=== PATIENT | male | born 1980 | race Caucasian/White ===

== ENCOUNTER 2016-06-18 01:55 | Inpatient (IN) | payer MEDICAID ==
--- NOTE | 2016-06-18 02:15 | EDPHY ---
H & P Stated Complaint: back injury 06/07/16 after seizures HPI/ROS: HPI CHIEF COMPLAINT: Back pain, from seizure 9 days ago HISTORY OF PRESENT ILLNESS: This patient is a very pleasant 36-year-old male significant past medical history for hypertension who presents to the emergency room with midline thoracic or lumbar back pain that radiates out paravertebral both sides describes a sharp stabbing pain currently 8/10 when he is at rest however when he goes to move gets 10/10. He denies the pain going down his legs , denies saddle anesthesia, denies numbness or tingling, denies leg weakness. He tells me the pain stays in the mid thoracic or lumbar region. It is worse with movement. He tells me that this been going on for approximately 9 days after he had a seizure patient tells me that on June 07 had a brief episode of seizure-like activity witnessed by his girlfriend lasting less than a minute. No seizure history. She does tell me that he was shaking all over and bit his lip. He tells me ever since then he has debilitating back pain it is much worse in the morning. He is not seek medical attention for this. Past Medical History: Hypertension Past Surgical History: No significant surgical history Social History: Lives locally, denies drugs, alcohol, tobacco products Family History: Noncontributory ROS REVIEW OF SYSTEMS: A comprehensive 10 point review of systems is otherwise negative aside from elements mentioned in the history of present illness. Exam Constitutional triage nursing summary reviewed, vital signs reviewed, awake/ alert. Eyes normal conjunctivae and sclera, EOMI, PERRLA. HENT normal inspection, atraumatic, moist mucus membranes, no epistaxis, neck supple/ no meningismus, no raccoon eyes. Respiratory clear to auscultation bilaterally, normal breath sounds, no respiratory distress, no wheezing. Cardiovascular rate normal, regular rhythm, no murmur, no edema, distal pulses normal. Gastrointestinal soft, non-tender, no rebound, no guarding, normal bowel sounds, no distension, no pulsatile mass. Genitourinary no CVA tenderness. Musculoskeletal back exam: Patient does have midline thoracolumbar tenderness no step-offs or crepitus, he also has paravertebral tenderness,full range of motion, no calf swelling, no tenderness of extremities, no meningismus , good pulses, neurovascularly intact. Skin pink, warm, & dry, no rash, skin atraumatic. Neurologic awake, alert and oriented x 3, AAOx3, moves all 4 extremities equally, motor intact, sensory intact, CN II-XII intact, normal cerebellar, normal vision, normal speech. Psychiatric normal mood/affect. Heme/Lymph/Immune no lymphadenopathy. Differential Diagnosis: Includes but is not limited to in a particular order musculoskeletal back pain, disc herniation, annular tear, compression fracture, new onset seizures, electrolyte abnormality Medical Decision Making: Patient will have an IV established receive IV fluids and pain medicine 100 mcg IV fentanyl, 2.5 mg IV Valium will check basic blood work including a CK, he will have a CT scan of his head due to new onset of seizures, and x-rays of her thoracolumbar back to rule out significant bony abnormality. Re-evaluation: CT scan of the head without IV contrast. The results of the study are negative for acute intracranial abnormality The study was read by Dr. Fang I viewed the images myself on the PACS system. ED x-ray thoracic spine: negative for acute compression fracture or significant malalignment. Image interpreted by myself ED x-ray lumbar spine: Negative for acute compression fracture or significant malalignment. Image interpreted by myself 0505: re-evaluation patient is still having midline thoracic lumbar back pain. Megan medicated with IV Valium, IV Toradol, IV Dilaudid. His CT scan results show multiple compression fractures specifically there is a moderate acute compression fracture T9 mild compression fracture T10 moderate at T5 age- indeterminate mild at T12 age indeterminate mild L1 age indeterminate. This CT was reported to me by Dr. Fang. 0505: I did speak with Dr. Ba with Neurosurgery on-call she does recommend this patient being placed in a [place] brace. Patient will be admitted to the hospitalist service for pain control and MRI of his thoracic and lumbar spine to evaluate for acuity of these compression fractures. Again at this time is neurological exam is unremarkable. Neurosurgery has been consulted. Hospital service Dr. Ly has been consult accepts admission. Plan is for pain control, brace placement, multiple compression fractures Neurosurgery to see. Again at this time is neurological exam is unremarkable he has no leg weakness no arm weakness, no sensation differences no numbness or tingling. No radiation of pain. He agrees with this plan. Source: Patient - Medical/Surgical History Hx Asthma: No Hx Chronic Respiratory Disease: No Hx Diabetes: No Hx Cardiac Disease: No Hx Renal Disease: No Hx Cirrhosis: No Hx Alcoholism: No Hx HIV/AIDS: No Hx Splenectomy or Spleen Trauma: No Other PMH: INSONMIA, HTN,ADHD - Social History Smoking Status: Former smoker Constitutional: Initial Vital Signs Temperature (C) 36.7 C 06/18/16 02:01 Heart Rate 140 H 06/18/16 02:01 Respiratory Rate 20 06/18/16 02:01 Blood Pressure 101/69 06/18/16 02:01 O2 Sat (%) 98 06/18/16 02:01 O2 Delivery Mode Room Air Allergies/Adverse Reactions: No Known Allergies Allergy (Unverified 06/18/16 01:59) Home Medications: Medication Instructions Recorded amLODIPine BESYLATE [Norvasc 5 mg 5 mg PO DAILY #60 tab 04/12/15 (*)] Acetaminophen [Tylenol ES 500 mg 1,000 mg PO TID PRN 06/18/16 (*)] Dextroamphetamine/Amphetamine 7.5 - 15 mg PO BID PRN 06/18/16 [Adderall 30 mg Tablet] HYDROcodone/APAP 10/325 [[place] 1 - 2 tab PO Q6HRS PRN #30 tab 06/18/16 10/325 (*)] Multivitamins [Multivitamin (*)] 1 tab PO DAILY 06/18/16 Zolpidem Tartrate [Ambien 10 mg] 10 mg PO HS PRN 06/18/16 Medical Decision Making - Data Points Laboratory Results: Laboratory Results 06/18/16 02:45 06/18/16 02:45 Medications Given: Discontinued Medications Acetaminophen/Hydrocodone Bitart ([place] 10/325) 1 - 2 tab PO Q6HRS PRN PRN Reason: Pain, Moderate Able to Take PO Stop: 06/28/16 08:27 Last Admin: 06/18/16 18:19 Dose: 1 tab Diazepam (Valium Injection) 2.5 mg IVP EDNOW ONE Stop: 06/18/16 02:23 Last Admin: 06/18/16 02:56 Dose: 2.5 mg Diazepam (Valium Injection) 2.5 mg IVP EDNOW ONE Stop: 06/18/16 04:19 Last Admin: 06/18/16 05:05 Dose: 2.5 mg Fentanyl (Sublimaze) 100 mcg IVP EDNOW ONE Stop: 06/18/16 02:23 Last Admin: 06/18/16 02:56 Dose: 100 mcg Hydromorphone HCl (Dilaudid) 1 mg IVP EDNOW ONE Stop: 06/18/16 04:19 Last Admin: 06/18/16 05:05 Dose: 1 mg Hydromorphone HCl (Dilaudid) 0.5 mg IVP Q2 PRN PRN Reason: Pain, Severe Unable to Take PO Stop: 06/28/16 06:31 Last Admin: 06/18/16 10:46 Dose: 0.5 mg Hydromorphone HCl (Dilaudid) 1 mg IVP ONCE ONE Stop: 06/18/16 09:50 Last Admin: 06/18/16 10:46 Dose: Not Given Sodium Chloride (Ns) 1,000 mls @ 0 mls/hr IV ONCE ONE PRN Reason: Wide Open Stop: 06/18/16 02:23 Last Admin: 06/18/16 02:56 Dose: 1,000 mls Ketorolac Tromethamine (Toradol) 30 mg IVP EDNOW ONE Stop: 06/18/16 04:19 Last Admin: 06/18/16 05:05 Dose: 30 mg Ondansetron HCl (Zofran) 4 mg IVP EDNOW ONE Stop: 06/18/16 02:23 Last Admin: 06/18/16 02:56 Dose: 4 mg Ondansetron HCl (Zofran Odt) 4 mg PO Q4HRS PRN PRN Reason: Nausea/Vomiting, Use 1st Stop: 12/15/16 06:31 Last Admin: 06/18/16 10:46 Dose: 4 mg Departure - Departure Disposition: [facility] Acute Clinical Impression: Compression fracture Back pain Qualifiers: Back pain location: low back pain Chronicity: acute Back pain laterality: midline Sciatica presence: without sciatica Qualifier Code: (M54.5) Low back pain Condition: Fair
[2016-06-18] MEDS ORDERED: DIAZEPAM 10 MG/2 ML SYR IVP ONE ×2 (02:22→04:18)
[2016-06-18] MEDS ORDERED: fentaNYL 100 MCG/2 ML INJ IVP ONE (02:22)
[2016-06-18] MEDS ORDERED: NS 1,000 ML IV ONE (02:22)
[2016-06-18] MEDS ORDERED: ONDANSETRON 4 MG/2 ML VIAL IVP ONE (02:22)
[2016-06-18 02:52] LABS: HEMATOCRIT 42.9 % (40.0-51.0); MEAN CELL VOLUME 94.5 fL (81.5-99.8); RED BLOOD CELL COUNT 4.54 10^6/uL (4.40-6.38); RED CELL DISTRIBUTION WIDTH 11.9 % (11.5-15.2)
[2016-06-18 03:02] LABS: ANION GAP 18 mEq/L (8-16); CALCIUM 10.3 mg/dL (8.5-10.4); CARBON DIOXIDE 24 mEq/l (22-31); CHLORIDE 101 mEq/L (97-110); CREATININE 0.7 mg/dL (0.7-1.3); GLOMERULAR FILTRATION RATE > 60; GLUCOSE 125 mg/dL (70-100); POTASSIUM 3.4 mEq/L (3.5-5.2); SODIUM 143 mEq/L (134-144)
[2016-06-18] MEDS ORDERED: KETOROLAC 30 MG/1 ML SDV IVP ONE (04:18)
[2016-06-18] MEDS ORDERED: HYDROmorphONE/DILAUDID 1 MG/ML SYR IVP ONE (04:18)
[2016-06-18 04:59] LABS: COLOR YELLOW; LEUKOCYTE ESTERASE,URINE NEGATIVE (NEGATIVE); NITRITE,URINE NEGATIVE (NEGATIVE)
[2016-06-18] MEDS ORDERED: LORazepam 2 MG/ML INJ IVP PRN (06:32)
[2016-06-18] MEDS ORDERED: ONDANSETRON DISINTEGRATING 4 MG TAB PO PRN (06:32)
[2016-06-18] MEDS ORDERED: ONDANSETRON 4 MG/2 ML VIAL IVP PRN (06:32)
[2016-06-18] MEDS ORDERED: ACETAMINOPHEN 325 MG TAB PO PRN (06:32)
[2016-06-18] MEDS ORDERED: DIAZEPAM 10 MG/2 ML SYR IVP PRN ×2 (06:37→09:49)
[2016-06-18] MEDS ORDERED: NS 1,000 ML IV SCH (06:45)
[2016-06-18 06:46] LABS: ALBUMIN 4.4 g/dL (3.5-5.0); BILIRUBIN,TOTAL 0.8 mg/dL (0.1-1.4); BILIRUBIN-CONJUGATED 0.4 mg/dL (0.0-0.5); BILIRUBIN-UNCONJUGATED 0.4 mg/dL (0.0-1.1); TOTAL PROTEIN 8.2 g/dL (6.3-8.2)
[2016-06-18 07:40] VITALS: RESP 16
--- NOTE | 2016-06-18 07:51 | CT ---
CT Head Without Contrast History: New seizure, trauma 10 days ago. Technique: Noncontrast images through the head. Soft tissue and bone window evaluation is performed. Dose reduction techniques were utilized. Comparison: None. Findings: The brain parenchyma is normal without midline shift, hydrocephalus, intracranial edema or hemorrhage. There is no evidence for subdural hematoma. There is no subarachnoid blood. The ambient cistern is patent. Ventricular size is consistent with the sulci. Bone window evaluation reveals some small retention cysts in each maxillary sinus. There is no evidence of pneumocephalus or a depressed skull fracture. The paranasal and mastoid sinuses and both middle ears are normally aerated. Impression: No source for seizure identified. No posttraumatic abnormality identified. Results called to Dr. Arteaga at 2:50 a.m. Final results are concordant with the initial interpretation. General information for patients regarding this examination can be found at [email or web address]. If you have questions or comments about this report, please contact me at (hospital) or [phone] (cell). [id number] MTDD
[2016-06-18] MEDS: HYDROmorphONE/DILAUDID 1 MG/ML SYR IVP PRN ×3 (07:57→10:46)
--- NOTE | 2016-06-18 08:14 | CT ---
CT Thoracic Spine Without Contrast History: Seizure, trauma 10 days ago. Comparison: None. Technique: Multislice helical CT through the thoracic spine without contrast. Soft tissue and bone evaluation is performed. Sagittal and coronal reconstructions are obtained and reviewed. Dose reduction techniques were utilized. Findings: Thoracic alignment is anatomic. The cervical thoracic junction and thoracolumbar junction are normally aligned. The posterior elements are normally aligned without fracture. Thoracic neural foramina are widely patent. There are acute superior endplate compression deformities of T9, moderate, and T10, mild, associated with mild paraspinal stripe widening and a vacuum phenomenon in the T8-T9 disk space. There is a Schmorl node defect involving the superior mid endplate of T11 that is of unknown age. There is a moderate T5 compression deformity of unknown age. There is a mild T12 and mild L1 compression deformity of unknown age. Impression: Definitely acute compressions of T9 and T10. Indeterminate age compressions of T5, T12, and L1 and of a Schmorl node defect involving the superior endplate of T11. 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 DEXA scanning may be useful to evaluate BMD. Does this patient have low bone strength (osteoporosis or osteomalacia)? Results called to Dr. Arteaga at 4:50 a.m. Final results are concordant with the initial interpretation. General information for patients regarding this examination can be found at [email or web address]. If you have questions or comments about this report, please contact me at [phone] (hospital) or [phone] (cell). POS99 MTDD
[2016-06-18] MEDS ORDERED: oxyCODONE IR 5 MG TAB PO PRN (08:29)
--- NOTE | 2016-06-18 09:01 | GCON ---
[f rep st] CONSULTATION NEUROSURGERY CONSULTATION NOTE CHIEF COMPLAINT: Back pain. HISTORY OF PRESENT ILLNESS: This is a 36-year-old male with a significant past medical history of hy pertension who presented to the emergency room with mid thoracic and upper lumbar back pain that he s tates he has been getting worse ever since June 07. Patient states that on June 07 he had no t taken his blood pressure medications and did not necessarily have a fall but states that he had "se izure activity" witnessed by his girlfriend, lasting less than a minute. The patient before this has no history of seizures. The patient states that he was shaking all over. The patient states that e margie since this, he has had debilitating back pain that is worse with movement and sneezing. The fouzia ent denies any recent trauma. The patient states that he did have a snowboarding accident a few year s ago, which he hurt his upper back but has not had pain and healed well from this. The patient curr ently denies any numbness, tingling, or weakness in his legs. He denies any loss of bowel or bladder control. He denies any saddle anesthesia. PAST MEDICAL HISTORY: Significant for hypertension. PAST SURGICAL HISTORY: Patient has no significant surgical history. SOCIAL HISTORY: The patient lives locally. 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 He smokes marijuana daily at night, and he has approximately 1 cigarette a month and drinks alcoh ol socially. FAMILY HISTORY: Noncontributory for any history of seizure or stroke or heart attack or cancer. The patient states that he does think his father has diabetes as well as hypertension. REVIEW OF SYSTEMS: Pertinent positive and negative review of systems as stated in the HPI. ALLERGIES: The patient has no known drug allergies. MEDICATIONS: Include amlodipine 5 mg p.o. daily, sucralfate 1 g p.o. a.c. and h.s., pantoprazole sod ium 40 mg p.o. b.i.d., hydrocortisone 1% 1 application transdermally b.i.d. OBJECTIVE: Vital signs: Blood pressure 110/82. Pulse is 57. Respiratory rate is 16. O2 sat is 97 % on room air. Temperature is 36.8 degrees Celsius. GENERAL: This is a well-developed, well-nourished male in no acute distress. HEENT: Head is normoc ephalic, atraumatic. Pupils are equal and reactive to light and accommodation. Extraocular muscles are intact. There is no facial droop. RESPIRATORY: Patient has normal work of breathing. CARDIOVA SCULAR: Patient is well perfused. ABDOMEN: There is no guarding. Abdomen is soft and nontender. MUSCULOSKELETAL: Patient is tender to palpation over the mid to upper thoracic spine and upper lumba r spine. NEURO: Cranial nerves 2-12 are grossly intact. Tongue protrudes in midline. Palate rises symmetrically. Facial sensation is intact to light touch. There is no droop. Patient is conversin g appropriately. He is alert and oriented x3. Accessory muscles are 5/5. Motor: Bilateral upper e xtremities are 5/5 and equal in strength in deltoids, biceps, triceps, wrist extensors and flexors, i nterossei, and wire coiner, and bilateral lower extremities are 5/5 and equal in strength in quadriceps, ham strings, dorsiflexion, plantar flexion, and EHL. Sensation is intact to light touch with a normal di stribution of his body. Reflexes are 2+ bilaterally in the patellar and Achilles. Other reflexes are negative for clonus and Avis's. EXTREMITIES: No cyanosis or edema noted. LABORATORY DATA: White blood cell count 5.42, red blood cell count 4.54, hemoglobin 15, hematocrit 4 2.9, platelets 371. Sodium 143, potassium 3.4, chloride 101, anion gap 18, BUN 7, creatinine 0.7, gl ucose 125, AST 53, ALT 72, alk phos 195. Urine negative for infection. There is a trace amount of k etones. IMAGING: CT of the head without contrast is negative for any acute intracranial abnormality. X-rays of the thoracic spine are negative for acute compression fracture or significant malalignment. CT scan of the thoracic spine shows multiple compression fractures. Specifically, there is a moderat e acute compression fracture at T9, mild compression fracture at T10, moderate at T5, and age-indeter minate mild compression fracture at T12 and mild L1 compression fracture, age indeterminate. This is reported by Dr. Fang. ASSESSMENT AND PLAN: This is a 36-year-old male who presented to the emergency room with thoracic an d upper lumbar back pain after supposed "seizure activity" on June 07 and has been getting worse ever since. At this time, the patient remains neurologically intact. CT scan of the thoracic spine shows multiple compression fractures, all of which are age indeterminate. We will obtain an MRI of t he thoracic spine in order to assess the acuteness of these fractures. Given these fractures are acu te, patient will be ordered and fit for a [place] brace. The patient's pain to be optimized on oral p ain medications. He should work with physical therapy and occupational therapy. He will be admitted to the medicine service, where they will further workup possible seizure activity. Any changes in h is neurological or motor status, please contact the surgical team. /[id number]/MODL
--- NOTE | 2016-06-18 09:31 | PDGENHP ---
History and Physical - Chief Complaint back pain - History of Present Illness Patient is 36/M with HTN, HLD who presents to the ED complaining of intense mid back pain. Patient states pain started on 06/07, after what he describes as seizure activity. Per pt on 06/07 he was in his home when he suddenly became unresponsive, associated with b/l upper and lower extremity jerking movements. No tongue biting, urinary incontinence or fall. Episode lasted less than 5 minutes and patient reports regaining consciousness with confusion. This happened a second time several hours later, again with generalized tonic clonic movements. This again remitted spontaneously after < 5 min. He did not seek medical care at that time. Immediately after these episodes, patient reports acute mid-back pain. He describes it as throbbing, located from just below scapulas to midlumbar region. He denies any associated focal weakness or numbness/tingling. Pain is worse upon waking in the morning and has been present throughout the day since 06/08. He has been taking tylenol prn for the pain with minimal improvement and decided to come to the ED for further evaluation On arrival to the ED, patient hemodynamically stable. CT of spine was obtained and revealed multiple acute vs subacute compression fractures of the T spine (T5 , T9, T10). labs were wnl. Patient was given pain control and admitted to the hospitalist service for further management. Neurosurgery was also consulted. History Information - Allergies/Home Medication List Allergies/Adverse Reactions: No Known Allergies Allergy (Unverified 06/18/16 01:59) I have personally reviewed and updated: family history, medical history, social history, surgical history - Past Medical History hypertension, hyperlipidemia - Surgical History Reports: no pertinent surgical hx - Family History Positive for: diabetes type II, hypertension - Social History Smoking Status: Former smoker (1-2 cigarettes occasionally) Alcohol Use: Rarely Drug Use: Marijuana Additional social history: Patient lives with girlfriend, works from home. Review of Systems ROS: 10pt was reviewed & negative except for what was stated in HPI & below Physical Exam Temp Pulse Resp BP Pulse Ox 36.8 C 57 L 16 110/82 H 97 06/18/16 07:39 06/18/16 07:39 06/18/16 07:39 06/18/16 07:39 06/18/16 07:39 Constitutional: no apparent distress, appears nourished, uncomfortable Eyes: PERRL, anicteric sclera, EOMI Ears, Nose, Mouth, Throat: moist mucous membranes, hearing normal, ears appear normal, no oral mucosal ulcers Cardiovascular: regular rate and rhythym, no murmur, rub, or gallop, pulses symmetric bilaterally, No JVD, No edema Peripheral Pulses: 2+: dorsalis-pedis (R), dorsalis-pedis (L) Respiratory: no respiratory distress, no rales or rhonchi, clear to auscultation Gastrointestinal: normoactive bowel sounds, soft, non-tender abdomen, no palpable masses, No guarding, No rebound Genitourinary: no bladder fullness, no bladder tenderness Skin: warm, normal color, no rashes or abrasions, no fluctuance, No mottled Musculoskeletal: full muscle strength, no muscle tenderness, pain with ROM, other (midline point tenderness in T and L spine) Neurologic: AAOx3, sensation intact bilaterally, CN II-XII Intact, No weakness, No numbness Psychiatric: interacting appropriately, not anxious, not encephalopathic, thought process linear Lab Data & Imaging Review 06/18/16 02:45 06/18/16 02:45 WBC 5.42 10^3/uL (3.80-9.50) 06/18/16 02:45 RBC 4.54 10^6/uL (4.40-6.38) 06/18/16 02:45 Hgb 15.0 g/dL (13.7-17.5) 06/18/16 02:45 Hct 42.9 % (40.0-51.0) 06/18/16 02:45 MCV 94.5 fL (81.5-99.8) 06/18/16 02:45 MCH 33.0 pg (27.9-34.1) 06/18/16 02:45 MCHC 35.0 g/dL (32.4-36.7) 06/18/16 02:45 RDW 11.9 % (11.5-15.2) 06/18/16 02:45 Plt Count 371 10^3/uL (150-400) 06/18/16 02:45 Sodium 143 mEq/L (134-144) 06/18/16 02:45 Potassium 3.4 mEq/L (3.5-5.2) L 06/18/16 02:45 Chloride 101 mEq/L (97-110) 06/18/16 02:45 Carbon Dioxide 24 mEq/l (22-31) 06/18/16 02:45 Anion Gap 18 mEq/L (8-16) 06/18/16 02:45 BUN 7 mg/dL (7-23) 06/18/16 02:45 Creatinine 0.7 mg/dL (0.7-1.3) 06/18/16 02:45 Estimated GFR > 60 06/18/16 02:45 Glucose 125 mg/dL (70-100) H 06/18/16 02:45 Calcium 10.3 mg/dL (8.5-10.4) 06/18/16 02:45 Total Bilirubin 0.8 mg/dL (0.1-1.4) 06/18/16 02:45 Conjugated Bilirubin 0.4 mg/dL (0.0-0.5) 06/18/16 02:45 Unconjugated Bilirubin 0.4 mg/dL (0.0-1.1) 06/18/16 02:45 AST 53 IU/L (17-59) 06/18/16 02:45 ALT 72 IU/L (21-72) 06/18/16 02:45 Alkaline Phosphatase 185 IU/L (38-126) H 06/18/16 02:45 Creatine Kinase 134 IU/L (0-224) 06/18/16 02:45 Total Protein 8.2 g/dL (6.3-8.2) 06/18/16 02:45 Albumin 4.4 g/dL (3.5-5.0) 06/18/16 02:45 Urine Color YELLOW 06/18/16 04:15 Urine Appearance CLEAR 06/18/16 04:15 Urine pH 6.0 (5.0-7.5) 06/18/16 04:15 Ur Specific [place] 1.017 (1.002-1.030) 06/18/16 04:15 Urine Protein NEGATIVE (NEGATIVE) 06/18/16 04:15 Urine Ketones TRACE (NEGATIVE) H 06/18/16 04:15 Urine Blood NEGATIVE (NEGATIVE) 06/18/16 04:15 Urine Nitrate NEGATIVE (NEGATIVE) 06/18/16 04:15 Urine Bilirubin NEGATIVE (NEGATIVE) 06/18/16 04:15 Urine Urobilinogen NEGATIVE EU (0.2-1.0) 06/18/16 04:15 Ur Leukocyte Esterase NEGATIVE (NEGATIVE) 06/18/16 04:15 Ur Culture Indicated? NOT INDICATED (NI) 06/18/16 04:15 Urine Glucose NEGATIVE (NEGATIVE) 06/18/16 04:15 Visualized and Interpreted imaging results: Yes Interpretation: CT T and L spine: multiple acute vs subacute compression fractures of thoracic vertebrae Assessment & Plan Assessment: Patient is 36/M with HTN who presents to the ED with complaint of severe mid back pain since possibly experiencing seizure activity over 2 weeks ago. Ed w/u revealed multiple acute/subacute compression fractures of the thoracic vertebrae. Plan: # acute compression fractures Neurosurgical input appreciated, will arrange for [place] brace. Will also obtain MRI T/L spine to further evaluate fractures and spine. Pain control as needed, including PO and IV, with valium prn. # ? seizure activity Patient's description of events appear consistent with GTC seizure. He has no previous history, denies any toxic ingestions during that time, and denies any recent illness that could have precipitated the events. Will obtain neurology consult and place on seizure precautions. # HTN BP stable. # Dispo: admit to inpt service for > 2 MN stay # gen: regular diet DVT ppx: ambulatory Full code
--- NOTE | 2016-06-18 09:42 | DX ---
Two-View Lumbar Spine. Clinical Indication trauma and pain. Today 0202. FINDINGS: Bony alignment is anatomic. Disk spaces are relatively well-maintained. There is very mild loss of height at L1. This finding is age-indeterminate. The visualized ribs and bony pelvis are unremarkable. Impression Minimal loss of height at L1 age indeterminate. The patient is scheduled for an MRI today to evaluate both the thoracic and lumbar spine and this can be further evaluated at that time.
--- NOTE | 2016-06-18 09:43 | DX ---
Thoracic Spine Two View. Clinical indication trauma. 06/18/2016 0201 hours FINDINGS: There is mild loss of height at the T5 vertebral body T9 vertebral body and minimal loss of height at L1. These are age indeterminate. Given history of trauma further imaging may be helpful fo r characterization at these levels. IMPRESSION: Compression fractures at T5 T9 and L1 age indeterminate. MRI is pending.
[2016-06-18] MEDS ORDERED: HYDROmorphONE/DILAUDID 2 MG/ML SYR IVP ONE (09:49)
[2016-06-18] MEDS: HYDROCODONE/APAP 10/325 TAB PO PRN ×3 (10:35→18:19)
[2016-06-18] MEDS ORDERED: GADOBUTROL 10 ML VIAL IVP ONE (10:59)
--- NOTE | 2016-06-18 14:53 | MR ---
MRI thoracic spine without and with contrast. HISTORY: Back pain. Recent trauma. Abnormal CT. COMPARISON: CT performed earlier today. TECHNIQUE: MRI is performed of the thoracic spine using a 3 Nina MRI system. Sagittal and axial imag ing was obtained with standard imaging sequences. Images were obtained pre- and post intravenous cont rast, 8 mL Gadavist. FINDINGS: There is moderate anterior wedge compression deformity of T9 involving the superior endplat e anteriorly. Mild anterior wedge compression deformity is seen of T10 and T11 vertebral bodies invol ving the superior endplate anteriorly. There is bone marrow edema and enhancement indicating that thi s is acute. No evidence for a retropulsed fragment. The posterior longitudinal ligament is intact. Mi nimal anterior wedge compression deformity is seen of T12 with no bone marrow edema. Moderate anterio r wedge compression deformity is seen of T5 without bone marrow edema. No significant spondylolisthes is. There is mild disk desiccation and disk height narrowing at T5-T6 and T6-T7. Slight broad based a nnular bulge at T9-T10 causing no significant encroachment. No other significant disk bulge, protrusi on, or extrusion. Thoracic spinal cord is normal in size and signal intensity without evidence for ab normal enhancement. IMPRESSIONS 1. Acute moderate anterior wedge compression deformity of T9 and mild anterior wedge compression defo rmity of T10 and T11 vertebral bodies. 2. Moderate chronic anterior wedge compression deformity of T5 and minimal chronic anterior wedge com pression deformity of T12. 3. Mild early degenerative disk disease multilevel with no significant encroachment as above.
--- NOTE | 2016-06-18 14:53 | MR ---
MRI brain without and with contrast. HISTORY: New seizure. TECHNIQUE: MRI is performed of the brain using a 3 Nina MRI system. Sagittal, coronal, and axial vandana ging was obtained with standard imaging sequences. Images were obtained pre- and post intravenous con trast, 8 mL Gadavist. FINDINGS: There are several small foci of abnormal signal intensity in the deep hemispheric white mat ter. This is a little more predominant in the left parietal lobe. These are visualized as foci of inc reased signal intensity on FLAIR imaging. No evidence for diffusion restriction or abnormal enhanceme nt. No other findings for intracranial mass, hemorrhage, or infarct. The ventricles, sulci, and ciste rns are within normal limits for the patient's age. No evidence for an extraaxial fluid collection. N ormal enhancement pattern to the brain. Pituitary and pineal regions are unremarkable. Craniocervical junction is unremarkable. Mucous retention cyst is seen in the right maxillary sinus. IMPRESSIONS 1. There are a few small foci of abnormal signal intensity in the deep hemispheric white matter bilat erally more predominant in the left parietal lobe. This is nonspecific and could be seen as sequela f rom gliosis from migraine or trauma or less likely small vessel ischemic disease with the patient's y oung age. Atypical demyelinating disease would be less likely. No evidence for acute infarct. 2. Mild chronic sinus related change.
--- NOTE | 2016-06-18 14:53 | MR ---
MRI lumbar spine without and with contrast. HISTORY: Back pain. Trauma [address] COMPARISON: CT performed earlier today. TECHNIQUE: MRI was performed of the lumbar spine using the 3 Nina MRI system. Sagittal and axial vandana ging was obtained with standard imaging sequences. Images were obtained pre and postintravenous contr ast, 8 mL Gadavist. FINDINGS: Mild bone marrow edema is seen in the superior aspect of the T11 vertebral body and slight depression of the superior endplate suggesting a mild acute compression fracture and a Schmorl's node . There is mild enhancement. Minimal anterior wedge compression deformity is seen of T12 with no bone marrow edema. No evidence for acute fracture of the lumbar spine. There is disk desiccation and mild disk height narrowing at L5-S1. No significant spondylolisthesis. Conus is visualized at T12-L1 and is unremarkable. No evidence of abnormal enhancement of the conus or cauda equina. L1-L2 level through L3-L4 level are unremarkable. L5-S1 level demonstrates a slight underlying broad-based annular bulge and small central protrusion c ausing no significant encroachment. IMPRESSION: Mild acute anterior wedge compression fracture at the T11 vertebral body. Minimal chronic anterior wedge compression fracture of T12. Early degenerative disk disease at L5-S1 causing no sign ificant encroachment.
[2016-06-18] MEDS ORDERED: AMPHETAMINE PO PRN (15:55)
[2016-06-18] MEDS ORDERED: DEXTROAMPHETAMINE PO PRN (15:55)
[2016-06-18] MEDS ORDERED: ADDERALL 10 MG TAB PO PRN (16:04)
[2016-06-18 17:18] VITALS: BP 133/85; PULSE 65; TEMP 98.4; O2SAT 94
--- NOTE | 2016-06-18 19:25 | GCON ---
[f rep st] CONSULTATION NEUROLOGIC CONSULTATION REFERRING PHYSICIAN: Dr. Bullock HISTORY: The patient is a 36-year-old gentleman who I am asked to see in neurologic consultation reg arding seizures. On June 07, he was at home and sitting on an ottoman and apparently acutely rocco t into a generalized seizure characterized by tonic contraction and loss of consciousness, then some clonic activity, reportedly foaming at the mouth, and then awakening after perhaps a minute or so, be ing confused in a postictal state, and then recovering. About 12 hours later, he was in bed and had another similar episode, although he was not asleep at the time. He does not remember either event o ther than the description given to him by his girlfriend who witnessed them both. He has had some ba ck pain since then, and came to the hospital yesterday, and has been found to have multilevel spinal compression fractures. He is supposed to get a brace and Neurosurgery has seen him. He says that he had normal and development and has never had a seizure before. There is no family history of seizure except perhaps a single seizure in his father in his 60s, and he is not sure why that might h ave happened. The patient says that he has not been sick, but he has a history of ADD and chronic in somnia since childhood. Historically, he has been on Adderall or Ambien. He said he had not been on those for about a year. Since the seizure episodes, he has been seen at the [facility] and had a prescription for Ambien and Adderall filled, and he says he is feeling better. I asked him about his alcohol history and he says that he has consumed alcohol for many years to a variable degree. He said that he might drink 2 or 3 days per week. He estimated for me that in the last 30 days he prob ably had something to drink 2/3 of the days and would usually have 2 or 3 drinks on a day. He does n ot think he had anything to drink for about 5 days prior to this event. He said he had become rather anorexic and was not sleeping, and had also not been taking his blood pressure medicine. He denies focal numbness or weakness. There is moderate back pain. He has never described any kind of auras. PAST MEDICAL HISTORY: Hyperlipidemia. FAMILY HISTORY: Diabetes and hypertension. SOCIAL HISTORY: He has a history of smoking but now only smokes 1 or 2 cigarettes occasionally. He has some use of marijuana. Alcohol as outlined above. 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 MEDICATIONS: Prior to his hospitalization, he was on Adderall 30 mg taking 7.5 to 15 b.i.d., amlodip ine 5 mg daily, Ambien 10 mg at night as needed for sleep, and Tylenol. Since coming to the hospital , he has also had some narcotic medications added as needed for pain. ALLERGIES: No known drug allergies. REVIEW OF SYSTEMS: Otherwise, a 10-point review of systems was completed and unremarkable except for that noted above. PHYSICAL EXAM: VITAL SIGNS: Blood pressure 110/82, pulse of 57, respirations 16, temperature 36.8. GENERAL: He is well developed, in no acute distress. HEENT: Eyes are clear. NECK: Supple with n o bruits or masses. CARDIAC: Regular rate and rhythm with no murmur. EXTREMITIES: No cyanosis or edema. NEUROLOGIC: He is alert and attentive with clear and fluent speech. He is oriented to perso n, place, and time. He has a good general fund of knowledge, and good recent and remote memory excep t for the actual events themselves. Concentration and attention are preserved. Pupils 2 mm and reac tive. I cannot view the fundi. No visual field loss. Extraocular movements are intact. Normal fac ial sensation and strength. Palate elevates symmetrically. Tongue protrudes midline. Hearing is pr eserved. No weakness of head turning or shoulder shrug. Motor exam, normal muscle bulk and tone. 5/ 5 strength and no abnormal movements. Sensation is preserved for temperature and light touch. Refle xes are 1+. No ataxic movements. LABORATORY STUDIES: I reviewed his laboratory studies and he has a normal CBC. Electrolytes are unr emarkable with normal liver enzymes. Urinalysis is unremarkable. He has had a brain MRI showing some nonspecific white matter changes. The thoracic MRI shows changes of acute moderate wedge compression deformity at T9 and mild anterior wedge compression deformity at T10 and T11. He has some chronic anterior wedge compression at T5 and chronic anterior wedge compre ssion at T12. On the lumbar MRI, there is a mild acute anterior wedge compression at T11 noted and T 12 as outlined above, and some disc disease at L5-S1, but no significant stenoses. IMPRESSION: The patient has experienced 2 generalized tonic-clonic seizures within about 12 hours on June 07. He has no known cause for seizure but probably a combination of factors are contributi ng. He has consumed alcohol regularly, though he says he does not really drink to excess. It is sti ll possible that the regular drinking and ceasing for 5 days put him at some risk, which was further exacerbated by some dehydration, hypoglycemia from not eating, and sleep deprivation. The likelihood of primary idiopathic epilepsy is relatively unlikely, but cannot definitively be excluded. We talk ed about all of this. His neurologic exam is unremarkable. The brain MRI changes are consistent wit h vascular disease but not clear-cut explanation for any seizure activity. An EEG would add further helpful information, but we spoke about that and he would like to defer doing that for now. I instru cted him that he is not to drive over the next few months given the uncertainty of exactly what otoniel madai and his absolute risk, and he said that should not be an issue and can have his girlfriend help francy im. I gave him my card to follow up as needed, and gave him and his friends who are with him instruc tions should he have a seizure about how best to handle that. Given the relatively low probability a t this point of recurrent seizure, we are not going to start an anticonvulsant, and he prefers that a t this point. He says he is going to focus on remaining free of alcohol and feels better about his s leep already and controlling his attention deficit disorder with the medications. He will follow up in the [facility]. Copy requested to: [facility] /[id number]/MODL
--- NOTE | 2016-06-19 05:16 | GDS ---
[f rep st] DISCHARGE SUMMARY DISCHARGE DIAGNOSES: For the patient include: 1. Acute compression fractures at multiple levels thoracic 2. Recent first-time seizure. 3. Alcohol abuse. 4. Hypertension. 5. Hyperlipidemia. 6. Attention deficit hyperactivity disorder. HISTORY OF PRESENT ILLNESS: A 36-year-old male who presents with complaints of acute back pain. For details of the patient's initial presentation, please see the History and Physical dated 06/18/2016. CONSULTATIVE SERVICES: Include: 1. Neurosurgery. 2. Neurology. PROCEDURES: On this patient include MRI imaging of the back which shows acute compression fractures. HOSPITAL COURSE BY ISSUE: 1. Acute compression fractures. Patient had plain films as well as MRI imaging confirming acute compression fractures of the spine. Neurosurgery consulted recommending bracing and outpatient followup. The patient was provided with fitting and bracing during this hospital stay and will follow with the outpatient neurosurgeon, Dr. Rafat Ascencio. 2. First-time seizure. Patient has a longstanding history of alcohol abuse. Reports 2 new tonic-clonic seizures within 2 hours of each other. There is certainly a risk that this is related to alcohol withdrawal alone. Neurology did consult. MRI imaging of the brain performed during his hospital stay showed no large acute abnormalities. Neurology felt most appropriate to not initiate any antiepileptic at this time. They recommend no driving for 2 months and would like to follow the patient in the outpatient setting. Encouraged the patient for ongoing alcohol cessation and medication compliance with his ADHD medications. MEDICATIONS AT THE TIME OF DISPOSITION: Please reference medication reconciliation printed on 06/18/2016. FOLLOWUP APPOINTMENTS: 1. With his primary care provider at [facility] who manage his outpatient medications for ADHD as well as with outpatient Neurology for long-term management and monitoring of any ongoing seizures. 2. With Neurosurgery for long-term management of his compression fractures and back pain. I spent greater than 30 minutes in the planning and coordination of this discharge. /[id number]/MODL MTDD
[2016-06-19] MEDS ORDERED: amLODIPine BESYLATE 5 MG TAB PO SCH (09:00)
[2016-06-19] MEDS ORDERED: MULTIVITAMINS 1 EACH TAB PO SCH (09:00)
== END 2016-06-18 18:28 | disposition home or self-care (01) | DRG 552 ==
LOC: F3N 06:01
PROVIDERS: ADMIT Internal Medicine; ATTEND Hospitalist
DX: S22.070A Wedge compression fracture of T9-T10 vertebra, initial encounter for closed fracture (principal); R56.9 Unspecified convulsions; F10.10 Alcohol abuse, uncomplicated; I10 Essential (primary) hypertension; E78.5 Hyperlipidemia, unspecified; F90.9 Attention-deficit hyperactivity disorder, unspecified type; W18.39XA Other fall on same level, initial encounter
CPT/HCPCS: A9585; J1170; J1885; J2405; J3010

== ENCOUNTER 2016-06-26 19:20 | Emergency (ER) | payer MEDICAID ==
[2016-06-26 19:42] VITALS: BP 148/90; PULSE 116; RESP 14; TEMP 98.6; O2SAT 98
[2016-06-26] MEDS ORDERED: HYDROCOD/APAP 5/325 PREPACK#6 BTL TAKEHOME ONE (20:35)
--- NOTE | 2016-06-26 20:39 | UCPHY ---
H & P Time Seen by Provider: 06/26/16 20:26 Patient Type: Established HPI/ROS: This patient sustained thoracic compression fractures on June 18 and requests further analgesics. He had decent pain control Newfields but ran out over this past 24 hours. Review of the script report reveals that he was taking appropriate amount for this. Of time to now be out of the [place]. He called his primary care physician and has an appointment but not until July 07. He reports the pain is 7/10 intensity worse with movement. He reports compliance with his TLSO. ROS: No numbness tingling or focal weakness. No bowel or bladder incontinence. No new injuries. 5 point ROS is otherwise negative. Social History: Sober since the beginning of June Smoking Status: Former smoker Physical Exam: Physical Exam Vital signs are normal. General: No acute distress Eyes: Pupils equal and react to light. Extraocular motions are intact. Lungs: No respiratory distress. Back: Patient has midline thoracic tenderness. Cardiac: Brisk capillary refill is intact throughout. Skin: No rash or pallor. Neuro: Alert and oriented x3 with no sensorimotor deficits. He maintains normal light touch sensation bilateral upper and lower extremities and 5/5 strength bilateral upper and lower extremities. Constitutional: Initial Vital Signs Temperature (C) 37 C 06/26/16 19:34 Heart Rate 116 H 06/26/16 19:34 Respiratory Rate 14 06/26/16 19:34 Blood Pressure 148/90 H 06/26/16 19:34 O2 Sat (%) 98 06/26/16 19:34 O2 Delivery Mode Room Air Allergies/Adverse Reactions: No Known Allergies Allergy (Verified 06/26/16 19:31) Home Medications: Medication Instructions Recorded amLODIPine BESYLATE [Norvasc 5 mg 5 mg PO DAILY #60 tab 04/12/15 (*)] Acetaminophen [Tylenol ES 500 mg 1,000 mg PO TID PRN 06/18/16 (*)] Multivitamins [Multivitamin (*)] 1 tab PO DAILY 06/18/16 Zolpidem Tartrate [Ambien 10 mg] 10 mg PO HS PRN 06/18/16 HYDROcodone/APAP 10/325 [Newfields 1 each PO Q6 PRN #30 tab 06/26/16 10/325 (*)] MDM/Departure - MDM Medications Given: Discontinued Medications Acetaminophen/Hydrocodone Bitart (Newfields 5/325mg Prepack#6) 1 btl TRUDY EDNOW ONE Stop: 06/26/16 20:36 Last Admin: 06/26/16 20:57 Dose: 1 btl ED Course/Re-evaluation: I counseled the patient to use some caution with opiates since he has a history of alcohol abuse. Encouraged him to try weaning off of the amount that he is currently taking. - Depart Disposition: Home, Routine, Self-Care Clinical Impression: Thoracic back pain Qualifiers: Chronicity: acute Back pain laterality: unspecified Qualifier Code: (M54.6) Pain in thoracic spine Instructions: Vertebral Compression Fracture (ED) Additional Instructions: Diagnosis: Back pain from compression fractures Plan: Wean down on the amount of hydrocodone your taking to 1 per 6 hours as needed and use Tylenol in addition as needed. Wear your back brace whenever up and about Follow up with the primary care physician Go to the emergency department if you have any significant worsening despite treatment plan Prescriptions: HYDROcodone/APAP 10/325 [Newfields 10/325 (*)] 1 each PO Q6 PRN #30 tab PRN Reason: Pain, Breakthrough Referrals: Sana Weiner PA [Primary Care Provider] - As per Instructions - PQRS PQRS Measurement: NA
== END 2016-06-26 20:58 | disposition home or self-care (01) ==
LOC: CED 19:20
DX: Z76.0 Encounter for issue of repeat prescription (principal); M54.6 Pain in thoracic spine; Z87.891 Personal history of nicotine dependence
CPT/HCPCS: 99214-PO; G0463-PO

== ENCOUNTER 2016-08-28 22:46 | Observation (INO) | payer MEDICAID ==
[2016-08-28] MEDS ORDERED: NS 1,000 ML IV ONE ×2 (23:16→23:30)
[2016-08-28] MEDS ORDERED: ONDANSETRON 4 MG/2 ML VIAL IVP ONE (23:22)
--- NOTE | 2016-08-28 23:22 | EDPHY ---
H & P Stated Complaint: n/v, unable to urinate HPI/ROS: HPI CHIEF COMPLAINT: Nausea, vomiting HISTORY OF PRESENT ILLNESS: This patient very pleasant 36-year-old male, presents to the emergency room by private vehicle with persistent nausea vomiting over the last 3 days. Patient tells me that on Friday he had a going away green party for friend he recently injured his back and had a spinal compression fracture and was placed on ibuprofen he has been taking large amounts ibuprofen and has been drinking alcohol for the past weekend Friday. Tells me drank multiple beers and shots on Friday for his friends going away green party before that he was having ongoing back pain he is taking ibuprofen. He has continued to take multiple doses of ibuprofen for pain control of his back fractures. He has been wearing his back brace. States for the past 3 days since the green party on Friday he has had ongoing nausea vomiting unable to tolerate p. o.. He tells me that every time he tries to drink or eat something he vomited back up. Denies any lower abdominal pain. He tells me he has been taking ibuprofen having ongoing nausea and vomiting, and has not urinated in 2 days. He does not have any urge to urinate. denies fever, chest pain, cough, shortness of breath. Denies headache or neck pain. Of note this patient does have fine tremors of his hands no tongue fasciculations, is noted be tachycardic does appear anxious it is possible this alcohol draw as well. Past Medical History: Spinal compression fractures, attention deficit hyperactivity disorder Past Surgical History: No recent surgical history Social History: Patient admits to drinking alcohol 4-5 times per week. Denies daily use of drugs or tobacco. Family History: ROS REVIEW OF SYSTEMS: A comprehensive 10 point review of systems is otherwise negative aside from elements mentioned in the history of present illness. Exam Constitutional tremulous triage nursing summary reviewed, vital signs reviewed , awake/alert. (Vital signs noted to be tachycardic) Eyes normal conjunctivae and sclera, EOMI, PERRLA. HENT normal inspection, atraumatic, moist mucus membranes, no epistaxis, neck supple/ no meningismus, no raccoon eyes. Respiratory clear to auscultation bilaterally, normal breath sounds, no respiratory distress, no wheezing. Cardiovascular tachycardia , regular rhythm, no murmur, no edema, distal pulses normal. Gastrointestinal soft, non-tender, no rebound, no guarding, normal bowel sounds, no distension, no pulsatile mass. Genitourinary no CVA tenderness. Musculoskeletal fine hand tremors, no midline vertebral tenderness, full range of motion, no calf swelling, no tenderness of extremities, no meningismus, good pulses, neurovascularly intact. Skin pink, warm, & dry, no rash, skin atraumatic. Neurologic awake, alert and oriented x 3, AAOx3, moves all 4 extremities equally, motor intact, sensory intact, CN II-XII intact, normal cerebellar, normal vision, normal speech. Psychiatric anxious normal mood/affect. Heme/Lymph/Immune no lymphadenopathy. Differential Diagnosis: Includes but is not limited to in a particular order alcohol-induced gastritis, ibuprofen induced peptic ulcer disease or gastritis, acute nausea vomiting from gastritis, esophagitis, dehydration electrolyte disturbance, renal failure from ibuprofen use and alcohol causing nausea vomiting causing prerenal renal failure Medical Decision Making: Plan for this patient had an IV established be placed on full in house counsel as he is tachycardic, he is afebrile and appears nontoxic, he will have a fluid bolus given 2 L normal saline, will check kidney function, abdominal blood work he will have an upright chest x-ray and KUB due to persistent nausea vomiting tells me vomited 50 times. Nonbilious nonbloody. Re-evaluation: CT scan of the abdomen pelvis with IV contrast The results of the study are hepatomegaly, otherwise unremarkable. The study was read by Dr. Fang. I viewed the images myself on the PACS system. 0123: this patient remains: Tachycardic and has fine hand tremors I do have concern that given his blood work is abnormal in hepatomegaly that this is alcohol withdrawal. He will receive a 3rd L fluid 1 more mg IV Ativan.. 0153: Patient agreeable for admission reason for admission persistent nausea vomiting elevated LFTs elevated bilirubin elevated alk-phos, and alcohol withdrawal. He appears to be with alcohol drawn dehydrated he has not urinated after 2 L he is getting a 2nd L at this time. He is fine hand tremors and tachycardia is improving after fluids and IV Ativan. Patient need to be admitted for most likely alcohol withdrawal, tachycardia, dehydration no evidence of renal failure. Patient CT scan does not show acute inflammatory process however he may need an ultrasound to further delineate his elevated bilirubin LFTs and alk-phos. [address] Ly agrees to admit this patient. Source: Patient - Personal History Current Tetanus/Diphtheria Vaccine: No Current Tetanus Diphtheria and Acellular Pertussis (TDAP): No - Medical/Surgical History Hx Asthma: No Hx Chronic Respiratory Disease: No Hx Diabetes: No Hx Cardiac Disease: No Hx Renal Disease: No Hx Cirrhosis: No Hx Alcoholism: Yes Hx HIV/AIDS: No Hx Splenectomy or Spleen Trauma: No Other PMH: INSOMNIA, HTN,ADHD, vertebral fx, seizure - Social History Smoking Status: Former smoker Constitutional: Initial Vital Signs Temperature (C) 36.8 C 08/28/16 22:52 Heart Rate 125 H 08/28/16 22:52 Respiratory Rate 18 08/28/16 22:52 Blood Pressure 146/111 H 08/28/16 22:52 O2 Sat (%) 95 08/28/16 22:52 O2 Delivery Mode Room Air Allergies/Adverse Reactions: No Known Allergies Allergy (Verified 08/28/16 22:51) Home Medications: Medication Instructions Recorded amLODIPine BESYLATE [Norvasc 5 mg 5 mg PO DAILY #60 tab 04/12/15 (*)] Multivitamins [Multivitamin (*)] 1 tab PO DAILY 06/18/16 Zolpidem Tartrate [Ambien 10 mg] 10 mg PO HS PRN 06/18/16 Adderall 20 mg (*) 08/28/16 Medical Decision Making - Data Points Laboratory Results: Laboratory Results 08/28/16 23:15 08/28/16 23:15 08/28/16 08/28/16 23:15 23:15 WBC 8.58 10^3/uL 10^3/uL (3.80-9.50) RBC 4.77 10^6/uL 10^6/uL (4.40-6.38) Hgb 15.8 g/dL g/dL (13.7-17.5) Hct 45.1 % % (40.0-51.0) MCV 94.5 fL fL (81.5-99.8) MCH 33.1 pg pg (27.9-34.1) MCHC 35.0 g/dL g/dL (32.4-36.7) RDW 13.4 % % (11.5-15.2) Plt Count 188 10^3/uL 10^3/uL (150-400) MPV 9.8 fL fL (8.7-11.7) Neut % (Auto) 69.9 % % (39.3-74.2) Lymph % (Auto) 19.6 % % (15.0-45.0) [place] % (Auto) 8.6 % % (4.5-13.0) Eos % (Auto) 0.8 % % (0.6-7.6) Baso % (Auto) 0.5 % % (0.3-1.7) Nucleat RBC Rel Count 0.0 % % (0.0-0.2) Absolute Neuts (auto) 6.00 10^3/uL 10^3/uL (1.70-6.50) Absolute Lymphs (auto) 1.68 10^3/uL 10^3/uL (1.00-3.00) Absolute Monos (auto) 0.74 10^3/uL 10^3/uL (0.30-0.80) Absolute Eos (auto) 0.07 10^3/uL 10^3/uL (0.03-0.40) Absolute Basos (auto) 0.04 10^3/uL 10^3/uL (0.02-0.10) Absolute Nucleated RBC 0.00 10^3/uL 10^3/uL (0-0.01) Immature Gran % 0.6 % % (0.0-1.1) Immature Gran # 0.05 10^3/uL 10^3/uL (0.00-0.10) Sodium 137 mEq/L mEq/L (134-144) Potassium 3.2 mEq/L L mEq/L (3.5-5.2) Chloride 96 mEq/L L mEq/L (97-110) Carbon Dioxide 22 mEq/l mEq/l (22-31) Anion Gap 19 mEq/L H mEq/L (8-16) BUN 24 mg/dL H mg/dL (7-23) Creatinine 1.2 mg/dL mg/dL (0.7-1.3) Estimated GFR > 60 Glucose 119 mg/dL H mg/dL (70-100) Calcium 10.4 mg/dL mg/dL (8.5-10.4) Total Bilirubin 2.8 mg/dL H mg/dL (0.1-1.4) Conjugated Bilirubin 0.9 mg/dL H mg/dL (0.0-0.5) Unconjugated Bilirubin 1.9 mg/dL H mg/dL (0.0-1.1) AST 144 IU/L H IU/L (17-59) ALT 87 IU/L H IU/L (21-72) Alkaline Phosphatase 143 IU/L H IU/L (38-126) Total Protein 9.5 g/dL H g/dL (6.3-8.2) Albumin 5.3 g/dL H g/dL (3.5-5.0) Ethyl Alcohol < 10 mg/dL mg/dL (0-10) Medications Given: Discontinued Medications Fentanyl (Sublimaze) 50 mcg IVP EDNOW ONE Stop: 08/29/16 01:31 Last Admin: 08/29/16 01:33 Dose: 50 mcg Sodium Chloride (Ns) 1,000 mls @ 0 mls/hr IV ONCE ONE PRN Reason: Wide Open Stop: 08/28/16 23:17 Last Admin: 08/28/16 23:20 Dose: 1,000 mls Sodium Chloride (Ns) 1,000 mls @ 0 mls/hr IV ONCE ONE PRN Reason: Wide Open Stop: 08/28/16 23:31 Last Admin: 08/28/16 23:41 Dose: 1,000 mls Sodium Chloride (Ns) 1,000 mls @ 0 mls/hr IV ONCE ONE PRN Reason: Wide Open Stop: 08/29/16 01:23 Last Admin: 08/29/16 01:30 Dose: 1,000 mls Lorazepam (Ativan Injection) 1 mg IVP EDNOW ONE Stop: 08/28/16 23:31 Last Admin: 08/28/16 23:41 Dose: 1 mg Lorazepam (Ativan Injection) 1 mg IVP EDNOW ONE Stop: 08/29/16 01:23 Last Admin: 08/29/16 01:30 Dose: 1 mg Ondansetron HCl (Zofran) 4 mg IVP EDNOW ONE Stop: 08/28/16 23:23 Last Admin: 08/28/16 23:52 Dose: 4 mg Pantoprazole Sodium (Protonix) 40 mg IVP EDNOW ONE Stop: 08/28/16 23:32 Last Admin: 08/28/16 23:52 Dose: 40 mg Departure - Departure Disposition: [facility] Inpatient Acute Clinical Impression: Tachycardia Nausea & vomiting Qualifiers: Vomiting type: unspecified Vomiting Intractability: non-intractable Qualified Code(s): R11.2 - Nausea with vomiting, unspecified Condition: Fair Referrals: Sana Weiner PA [Primary Care Provider] - As per Instructions
[2016-08-28] MEDS ORDERED: LORazepam 2 MG/ML INJ IVP ONE (23:30)
[2016-08-28] MEDS ORDERED: PANTOPRAZOLE SODIUM 40 MG VIAL IVP ONE (23:31)
[2016-08-28] MEDS ORDERED: LORazepam 2 MG/ML INJ ONE (23:31)
[2016-08-28 23:32] LABS: % IMMATURE GRANULYOCYTES 0.6 % (0.0-1.1); ABSOLUTE IMMATURE GRANULOCYTES 0.05 10^3/uL (0.00-0.10); ADD DIFF? NO; ADD MORPH? NO; ADD SCAN? NO; ATYPICAL LYMPHOCYTE FLAG 10 (0-99); FRAGMENT RBC FLAG 0 (0-99); HEMATOCRIT 45.1 % (40.0-51.0); HEMOGLOBIN 15.8 g/dL (13.7-17.5); LEFT SHIFT FLG 0 (0-99); LIPEMIA HEMOLYSIS FLAG 90 (0-99); MEAN CELL HEMOGLOBIN 33.1 pg (27.9-34.1); MEAN CELL VOLUME 94.5 fL (81.5-99.8); MEAN PLATELET VOLUME 9.8 fL (8.7-11.7); PLATELET CLUMPS FLAG 0 (0-99); PLATELET COUNT 188 10^3/uL (150-400); RED BLOOD CELL COUNT 4.77 10^6/uL (4.40-6.38); RED CELL DISTRIBUTION WIDTH 13.4 % (11.5-15.2)
[2016-08-28 23:41] LABS: ALANINE AMINOTRANSFERASE 87 IU/L (21-72); ALBUMIN 5.3 g/dL (3.5-5.0); ALKALINE PHOSPHATASE 143 IU/L (38-126); ANION GAP 19 mEq/L (8-16); ASPARTATE AMINOTRANSFERASE 144 IU/L (17-59); BILIRUBIN,TOTAL 2.8 mg/dL (0.1-1.4); BILIRUBIN-CONJUGATED 0.9 mg/dL (0.0-0.5); BILIRUBIN-UNCONJUGATED 1.9 mg/dL (0.0-1.1); CALCIUM 10.4 mg/dL (8.5-10.4); CARBON DIOXIDE 22 mEq/l (22-31); CHLORIDE 96 mEq/L (97-110); CREATININE 1.2 mg/dL (0.7-1.3); ETHANOL SERUM < 10 mg/dL (0-10); GLOMERULAR FILTRATION RATE > 60; GLUCOSE 119 mg/dL (70-100); POTASSIUM 3.2 mEq/L (3.5-5.2); SODIUM 137 mEq/L (134-144); TOTAL PROTEIN 9.5 g/dL (6.3-8.2)
[2016-08-29] MEDS ORDERED: IOPAMIDOL (ISOVUE-300) 100 ML BTL IV ONE (00:15)
[2016-08-29] MEDS ORDERED: NS 1,000 ML IV ONE (01:22)
[2016-08-29] MEDS ORDERED: LORazepam 2 MG/ML INJ IVP ONE ×2 (01:22→03:08)
[2016-08-29] MEDS ORDERED: fentaNYL 100 MCG/2 ML INJ ONE (01:29)
[2016-08-29] MEDS ORDERED: fentaNYL 100 MCG/2 ML INJ IVP ONE (01:30)
[2016-08-29] MEDS ORDERED: ONDANSETRON 4 MG/2 ML VIAL ONE (01:56)
--- NOTE | 2016-08-29 01:56 | CPEKG ---
Heart Rate: 109 RR Interval: 550 P-R Interval: 196 QRSD Interval: 86 QT Interval: 336 QTC Interval: 453 P [place]: 32 QRS [place]: -22 T Wave [place]: 1 EKG Severity - ABNORMAL ECG - EKG Impression: SINUS TACHYCARDIA EKG Impression: PROBABLE LEFT ATRIAL ABNORMALITY EKG Impression: BORDERLINE LEFT AXIS DEVIATION EKG Impression: BORDERLINE T ABNORMALITIES, INFERIOR LEADS EKG Impression: some artifact EKG Impression: No significant change from April 10, 2015 Electronically Signed By: Vadim Mcnulty 01-Sep-2016 12:20:24
[2016-08-29] MEDS ORDERED: ONDANSETRON 4 MG/2 ML VIAL IVP ONE (01:58)
[2016-08-29] MEDS ORDERED: ACETAMINOPHEN 325 MG TAB PO PRN (02:25)
[2016-08-29] MEDS ORDERED: ONDANSETRON DISINTEGRATING 4 MG TAB PO PRN (02:25)
[2016-08-29] MEDS ORDERED: MAG HYDROX/AL HYDROX/SIMETH 30 ML UDCUP PO PRN (02:27)
[2016-08-29] MEDS ORDERED: PROTOCOL MAGNESIUM 1 DOSE IV PRN (02:30)
[2016-08-29] MEDS ORDERED: NS 1,000 ML IV SCH (02:30)
[2016-08-29] MEDS ORDERED: PROTOCOL POTASSIUM 1 DOSE MISC PRN (02:30)
--- NOTE | 2016-08-29 02:40 | PDGENHP ---
History and Physical - Chief Complaint nausea, vomiting - History of Present Illness Patient is a 36 year old male with history of chronic etoh use, h/o seizure ( thought to be due to ETOH withdrawal) that resulted in multiple compression fractures of his thoracic spine, now in thoracic brace. Patient presents to the ED today complaining of nausea and vomiting over the past 3 days. Patient states on 08/26 he was at a friend's going away democrat where he drank a moderate amount of alcohol. He was also given a "bear hug" by his friend after which he experienced significant worsening of his thoracic back pain. When he awoke the day following the democrat, he had significant nausea and vomiting and back pain. He took Ibuprofen for his back pain and was unable to maintain much PO intake given his persistent nausea/vomiting. He states his vomitus was initially nonbloody, however, he did notice some streaks of blood today. He has mild epigastric discomfort and significant bloating, but denies diarrhea. He reports his last alcohol use was on 08/26. On arrival to the ED, patient was significantly tachycardic, otherwise hemodynamically stable, afebrile. Labs revealed normal CBC, but elevated LFTs, bilirubins and creatinine. CT abd/pelvis revealed enlarged, fatty liver, but no other pathology. EKG revealed sinus tachycardia. He was given symptom control, was treated for mild alcohol withdrawal and admitted to the hospitalist service for further management. History Information - Allergies/Home Medication List Allergies/Adverse Reactions: No Known Allergies Allergy (Verified 08/28/16 22:51) Home Medications: Multivitamins [Multivitamin (*)] 1 tab PO DAILY 06/18/16 [Last Taken 06/17/16 10 :00] Zolpidem Tartrate [Ambien 10 mg] 10 mg PO HS PRN 06/18/16 [Last Taken 06/17/16 22:00] Adderall 20 mg (*) 08/28/16 [Last Taken Unknown] I have personally reviewed and updated: family history, medical history, social history, surgical history - Past Medical History Additional medical history: ADD. HTN. pre-diabetes. chronic ETOH. thoracic compression fractures. 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 Review of Systems ROS: 10pt was reviewed & negative except for what was stated in HPI & below Physical Exam Temp Pulse Resp BP Pulse Ox 36.8 C 113 H 18 131/92 H 96 08/28/16 22:52 08/29/16 01:02 08/29/16 01:02 08/29/16 01:02 08/29/16 01:02 Constitutional: no apparent distress, appears nourished, not in pain Eyes: PERRL, anicteric sclera, EOMI Ears, Nose, Mouth, Throat: hearing normal, ears appear normal, no oral mucosal ulcers, dry mucous membranes Cardiovascular: regular rate and rhythym, no murmur, rub, or gallop, pulses symmetric bilaterally, tachycardia, No JVD, No edema Peripheral Pulses: 2+: dorsalis-pedis (R), dorsalis-pedis (L) Respiratory: no respiratory distress, no rales or rhonchi, clear to auscultation Gastrointestinal: normoactive bowel sounds, soft, non-tender abdomen, no palpable masses, No guarding, No rebound Genitourinary: no bladder fullness, no bladder tenderness Skin: warm, normal color, no rashes or abrasions, no fluctuance, no induration, No mottled Musculoskeletal: full muscle strength, no muscle tenderness, normal joint ROM, no joint effusions, other (fine distal tremor and tongue fasiculation) Neurologic: AAOx3, sensation intact bilaterally, CN II-XII Intact, No weakness, No numbness, No facial droop Psychiatric: interacting appropriately, not anxious, not encephalopathic, thought process linear Lab Data & Imaging Review 08/29/16 04:19 08/29/16 04:19 WBC 8.58 10^3/uL (3.80-9.50) 08/28/16 23:15 RBC 4.77 10^6/uL (4.40-6.38) 08/28/16 23:15 Hgb 15.8 g/dL (13.7-17.5) 08/28/16 23:15 Hct 45.1 % (40.0-51.0) 08/28/16 23:15 MCV 94.5 fL (81.5-99.8) 08/28/16 23:15 MCH 33.1 pg (27.9-34.1) 08/28/16 23:15 MCHC 35.0 g/dL (32.4-36.7) 08/28/16 23:15 RDW 13.4 % (11.5-15.2) 08/28/16 23:15 Plt Count 188 10^3/uL (150-400) 08/28/16 23:15 MPV 9.8 fL (8.7-11.7) 08/28/16 23:15 Neut % (Auto) 69.9 % (39.3-74.2) 08/28/16 23:15 Lymph % (Auto) 19.6 % (15.0-45.0) 08/28/16 23:15 [place] % (Auto) 8.6 % (4.5-13.0) 08/28/16 23:15 Eos % (Auto) 0.8 % (0.6-7.6) 08/28/16 23:15 Baso % (Auto) 0.5 % (0.3-1.7) 08/28/16 23:15 Nucleat RBC Rel Count 0.0 % (0.0-0.2) 08/28/16 23:15 Absolute Neuts (auto) 6.00 10^3/uL (1.70-6.50) 08/28/16 23:15 Absolute Lymphs (auto) 1.68 10^3/uL (1.00-3.00) 08/28/16 23:15 Absolute Monos (auto) 0.74 10^3/uL (0.30-0.80) 08/28/16 23:15 Absolute Eos (auto) 0.07 10^3/uL (0.03-0.40) 08/28/16 23:15 Absolute Basos (auto) 0.04 10^3/uL (0.02-0.10) 08/28/16 23:15 Absolute Nucleated RBC 0.00 10^3/uL (0-0.01) 08/28/16 23:15 Immature Gran % 0.6 % (0.0-1.1) 08/28/16 23:15 Immature Gran # 0.05 10^3/uL (0.00-0.10) 08/28/16 23:15 Sodium 137 mEq/L (134-144) 08/28/16 23:15 Potassium 3.2 mEq/L (3.5-5.2) L 08/28/16 23:15 Chloride 96 mEq/L (97-110) L 08/28/16 23:15 Carbon Dioxide 22 mEq/l (22-31) 08/28/16 23:15 Anion Gap 19 mEq/L (8-16) H 08/28/16 23:15 BUN 24 mg/dL (7-23) H 08/28/16 23:15 Creatinine 1.2 mg/dL (0.7-1.3) 08/28/16 23:15 Estimated GFR > 60 08/28/16 23:15 Glucose 119 mg/dL (70-100) H 08/28/16 23:15 Calcium 10.4 mg/dL (8.5-10.4) 08/28/16 23:15 Total Bilirubin 2.8 mg/dL (0.1-1.4) H 08/28/16 23:15 Conjugated Bilirubin 0.9 mg/dL (0.0-0.5) H 08/28/16 23:15 Unconjugated Bilirubin 1.9 mg/dL (0.0-1.1) H 08/28/16 23:15 AST 144 IU/L (17-59) H 08/28/16 23:15 ALT 87 IU/L (21-72) H 08/28/16 23:15 Alkaline Phosphatase 143 IU/L (38-126) H 08/28/16 23:15 Total Protein 9.5 g/dL (6.3-8.2) H 08/28/16 23:15 Albumin 5.3 g/dL (3.5-5.0) H 08/28/16 23:15 Ethyl Alcohol < 10 mg/dL (0-10) 08/28/16 23:15 Visualized and Interpreted imaging results: Yes Interpretation: CT abd/pelvis: enlarged, fatty liver. AXR: no bowel obstruction. ABD US: no obvious gallstones Visualized and Interpreted EKG results: Yes EKG additional interpertation: sinus tachycardia, st/t wave changes Assessment & Plan Assessment: Patient is a 36/M with history of chronic ETOH use, with previous history of withdrawal seizure and thoracic compression fractures, presents to the ED with 3 days of nausea, vomiting and decreased PO intake. On presentation, patient is also with evidence of acute alcohol withdrawal. Plan: # acute gastroenteritis Likely related to binge alcohol consumption on 08/26, although a viral infectious etiology is also possible. Patient denies any diarrhea, is afebrile and without leukocytosis and CT does not show any evidence of obstruction or colitis. Labs do show evidence of dehydration and electrolyte abnormalities likely related to GI losses. Will give IVF hydration, replete electrolytes and continue symptom control with anti-emetics prn. Will also initiate PPI for gastritis. # acute alcohol withdrawal Patient reports last ETOH intake was on 08/26. He has an admission to [facility] in 2016 for seizures which were thought to be secondary to ETOH withdrawal, despite patient's relatively modest description of regular ETOH use. On presentation today, patient is tachycardic, mildly tremulous and anxious, which appears consistent with acute etoh withdrawal. Will place on CIWA protocol, dose ativan prn and supplement thiamine, MVN, folate. # tachycardia Likely multlifactorial, related to acute withdrawal, acute dehydration and, less likely, infection. EKG shows sinus tachycardia without obvious ischemic changes. Will cont to monitor. # hypokalemia, hypomagnesemia, elevated creatine Likely due to GI losses and pre-renal azotemia. Will replete electrolytes, give IVF hydration and trend BMP. # transaminitis Appears consistent with mild alcoholic hepatitis. CT abd/pelvis shows diffusely fatty liver. Will obtain abd US to evaluate biliary tree and send acute hepatitis panel if persistently elevated. # recent thoracic fractures Patient reports being mostly compliant with his prescribed thoracic brace. Patient reports history of new worsened pain after a hug on 08/26, however, CT abd/pelvis reveals stable chronic fractures of T11-L2. Will provide pain control prn. # dispo: admit to observation for mild etoh withdrawal # gen: clear liquid diet DVT ppx: lovenox Full code
[2016-08-29] MEDS ORDERED: MAGNESIUM SULF 2 GM/WATER 50 ML IV ONE (02:47)
[2016-08-29] MEDS ORDERED: POTASSIUM CL 20 MEQ/15 ML UDCUP PO ONE (02:48)
[2016-08-29] MEDS ORDERED: HYDROmorphONE/DILAUDID 1 MG/ML SYR ONE (03:32)
[2016-08-29] MEDS: oxyCODONE IR 5 MG TAB PO PRN ×5 (03:37→21:11)
[2016-08-29] MEDS: HYDROmorphONE/DILAUDID 1 MG/ML SYR IVP PRN ×5 (03:37→22:25)
[2016-08-29] MEDS: THIAMINE HCL 500 MG in NS 100 ML IV SCH (05:01)
[2016-08-29 05:13] LABS: % IMMATURE GRANULYOCYTES 0.2 % (0.0-1.1); ABSOLUTE IMMATURE GRANULOCYTES 0.01 10^3/uL (0.00-0.10); ADD DIFF? NO; HEMOGLOBIN 12.8 g/dL (13.7-17.5); MEAN CELL HEMOGLOBIN 33.2 pg (27.9-34.1); MEAN CELL HEMOGLOBIN CONCENTR. 33.7 g/dL (32.4-36.7); MEAN CELL VOLUME 98.4 fL (81.5-99.8); PLATELET COUNT 126 10^3/uL (150-400); RED BLOOD CELL COUNT 3.86 10^6/uL (4.40-6.38); RED CELL DISTRIBUTION WIDTH 13.6 % (11.5-15.2)
[2016-08-29 05:14] LABS: ADD MORPH? NO; ADD SCAN? NO; ATYPICAL LYMPHOCYTE FLAG 0 (0-99); FRAGMENT RBC FLAG 0 (0-99); LEFT SHIFT FLG 0 (0-99); LIPEMIA HEMOLYSIS FLAG 80 (0-99); PLATELET CLUMPS FLAG 0 (0-99)
[2016-08-29 05:21] LABS: INR 1.1 (0.83-1.16); PROTIME(PATIENT) 14.1 SEC (12.0-15.0)
[2016-08-29 05:22] LABS: APTT 27.5 SEC (23.0-38.0)
[2016-08-29 05:35] LABS: ALANINE AMINOTRANSFERASE 62 IU/L (21-72); ALKALINE PHOSPHATASE 94 IU/L (38-126); ANION GAP 13 mEq/L (8-16); ASPARTATE AMINOTRANSFERASE 91 IU/L (17-59); BILIRUBIN,TOTAL 1.8 mg/dL (0.1-1.4); CALCIUM 8.5 mg/dL (8.5-10.4); CARBON DIOXIDE 20 mEq/l (22-31); CHLORIDE 106 mEq/L (97-110); CREATININE 0.7 mg/dL (0.7-1.3); GLOMERULAR FILTRATION RATE > 60; GLUCOSE 118 mg/dL (70-100); MAGNESIUM 1.7 mg/dL (1.6-2.3); POTASSIUM 3.7 mEq/L (3.5-5.2); SODIUM 139 mEq/L (134-144)
[2016-08-29 08:51] VITALS: RESP 16
[2016-08-29] MEDS: ENOXAPARIN 40 MG/0.4 ML SYR SC SCH (08:51)
[2016-08-29] MEDS: PANTOPRAZOLE SODIUM 40 MG in NS 100 ML IV SCH (08:51)
[2016-08-29] MEDS: MULTIVITAMINS 1 EACH TAB PO SCH (08:51)
[2016-08-29] MEDS: LORazepam 2 MG/ML INJ IVP PRN ×4 (08:51→22:25)
[2016-08-29] MEDS: FOLIC ACID 1 MG TAB PO SCH (08:51)
[2016-08-29] MEDS: ONDANSETRON 4 MG/2 ML VIAL IVP PRN ×2 (09:04→13:35)
[2016-08-29] MEDS ORDERED: MAGNESIUM SULF 1 GM/DEXTROSE 100 ML IV ONE (09:10)
[2016-08-29] MEDS ORDERED: POTASSIUM CL 10 MEQ TAB PO ONE ×2 (09:10→21:12)
[2016-08-29] MEDS ORDERED: NON-FORMULARY NEW DRUG (Zolpidem Tartrate [Ambien 10 Mg] 10 MG) PO PRN (10:35)
[2016-08-29] MEDS ORDERED: ZOLPIDEM TARTRATE 5 MG TAB PO PRN (10:39)
[2016-08-29] MEDS: amLODIPine BESYLATE 5 MG TAB PO SCH (11:42)
[2016-08-29 13:57] LABS: COLOR AMBER; LEUKOCYTE ESTERASE,URINE NEGATIVE (NEGATIVE); NITRITE,URINE NEGATIVE (NEGATIVE)
[2016-08-29 14:04] LABS: MUCUS 2+ /lpf (NONE-1+)
[2016-08-29 14:45] LABS: PHENCYCLIDINE URINE BCH < 6 ng/ml (NEGATIVE); PHENCYCLIDINE URINE BCH NEGATIVE (NEGATIVE)
[2016-08-29 14:56] LABS: TETRAHYDROCANNABINOL URINE 117 ng/mL (NEGATIVE)
[2016-08-29 20:18] LABS: POTASSIUM 3.4 mEq/L (3.5-5.2)
[2016-08-30] MEDS: oxyCODONE IR 5 MG TAB PO PRN ×4 (02:04→18:14)
[2016-08-30] MEDS: LORazepam 2 MG/ML INJ IVP PRN ×4 (03:08→13:56)
[2016-08-30] MEDS: HYDROmorphONE/DILAUDID 1 MG/ML SYR IVP PRN ×3 (03:08→13:48)
[2016-08-30 05:35] LABS: MAGNESIUM 2.1 mg/dL (1.6-2.3); POTASSIUM 3.6 mEq/L (3.5-5.2)
[2016-08-30 08:41] VITALS: TEMP 97.9
[2016-08-30] MEDS: amLODIPine BESYLATE 5 MG TAB PO SCH (08:42)
[2016-08-30] MEDS: MULTIVITAMINS 1 EACH TAB PO SCH (08:42)
[2016-08-30] MEDS: FOLIC ACID 1 MG TAB PO SCH (08:42)
[2016-08-30] MEDS: ENOXAPARIN 40 MG/0.4 ML SYR SC SCH (08:44)
[2016-08-30] MEDS: PANTOPRAZOLE SODIUM 40 MG in NS 100 ML IV SCH (08:45)
[2016-08-30] MEDS: ONDANSETRON 4 MG/2 ML VIAL IVP PRN (08:46)
[2016-08-30] MEDS: THIAMINE HCL 500 MG in NS 100 ML IV SCH (08:46)
[2016-08-30 11:58] VITALS: BP 137/84; PULSE 99; O2SAT 95
[2016-08-30] MEDS ORDERED: POTASSIUM CL 10 MEQ TAB PO ONE (14:13)
--- NOTE | 2016-08-30 16:52 | GDS ---
[f rep st] DISCHARGE SUMMARY ADMISSION DIAGNOSES: New and acute diagnoses on this admission: 1. Acute alcohol addiction and withdrawal. 2. Acute gastroenteritis, likely secondary to alcohol consumption. 3. Thoracic back pain, probably related to hepatomegaly. 4. Tachycardia, secondary to dehydration. 5. Electrolyte disorders of potassium, magnesium, and an elevated creatinine. 6. Acute kidney injury secondary to dehydration. 7. Transaminitis. 8. Recent thoracic fractures, which are said to be chronic at T11 and T12. CONSULTATIONS: None. PROCEDURES: None. HOSPITAL COURSE: A 36-year-old male who was admitted because of back pain, tachypnea, and possible alcohol withdrawal. He has a history of recent heavy alcohol use and is known to have used alcohol heavily in the past. On admission he was noted to be tachypneic, tachycardic and hypertensive. Lab oratories noted a normal white count, abnormal liver function tests with an elevated AST greater simon n ALT, consistent with alcohol, electrolyte disorders of potassium and magnesium. These were replet ed, he was rehydrated, and his renal function returned to normal. He had no seizure disorder or exc ess withdrawal. He was treated with [facility] protocol successfully. He was concerned about some enlargement of his breasts, which was likely consistent with gynecomasti a secondary to hepatic injury due to alcohol. An ultrasound confirmed the findings of gynecomastia without a mass. DISCHARGE MEDICATIONS: New medications will be Librium 25 mg, #10, one three times daily, thiamin 1 00 mg daily, multivitamin daily. Continued medications would be Norvasc 5 mg daily, Ambien 10 mg p. o. at bedtime p.r.n., Adderall 15 mg p.o. at 10:00 a.m. and 1600 hours, ibuprofen 200/800 t.i.d. for pain. PLAN: Ben will be followed up through the [facility] and has been given referrals to the [facility] for alcohol rehabilitation. His followup will be with Sana Gamble, or through [facility] . TIME: This discharge required 40 minutes, greater than 50% to director of group counseling program and coordinate care and expla in the findings of the ultrasound to the patient successfully. I also coordinated the interactions with manager social media. /[id number]/MODL
[2016-09-01] MEDS ORDERED: THIAMINE HCL 100 MG TAB PO SCH (09:00)
== END 2016-08-30 18:15 | disposition home or self-care (01) ==
LOC: INTOOBSV 08-29 01:52 → F3E 08-29 03:26
PROVIDERS: ADMIT Internal Medicine; ATTEND Internal Medicine
DX: F10.239 Alcohol dependence with withdrawal, unspecified (principal); S22.070D Wedge compression fracture of T9-T10 vertebra, subsequent encounter for fracture with routine healing; K52.9 Noninfective gastroenteritis and colitis, unspecified; R16.0 Hepatomegaly, not elsewhere classified; M54.6 Pain in thoracic spine; E86.0 Dehydration; N17.9 Acute kidney failure, unspecified; I10 Essential (primary) hypertension; R73.03 Prediabetes; F98.8 Other specified behavioral and emotional disorders with onset usually occurring in childhood and adolescence; E87.6 Hypokalemia; E83.42 Hypomagnesemia
CPT/HCPCS: 71010; 74000; 74177; 76641; 76705; 93005; 96361; 96374; 96375; 96376; 99285; G0378; 80307; G0480; J1170; J1650; J2060; J2405; J3010; J3411; J3475; Q9967

== ENCOUNTER → 2016-09-08 | Outpatient (CLI) | payer MEDICAID | LOC: FIMAGING 14:41 | PROVIDERS: ATTEND Physician Assistant | DX: S22.080D Wedge compression fracture of T11-T12 vertebra, subsequent encounter for fracture with routine healing (principal); S32.010D Wedge compression fracture of first lumbar vertebra, subsequent encounter for fracture with routine healing ==

== ENCOUNTER 2017-07-01 04:27 | Inpatient (IN) | payer MEDICAID ==
--- NOTE | 2017-07-01 04:37 | EDPHY ---
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 Patient states he has not had a drink since June 03. He arrives to our emergency room this evening due to approximately 3-5 days of increasing scrotal swelling and now has worsening pain. Denies any chest pain or shortness of breath. Denies abdominal pain. He does state his abdomen is more distended than normal. Denies fever chills. Denies urinary symptoms. Decided come the emergency room due to increasing scrotal swelling and discomfort. He does report to me that he had a paracentesis twice so far. He states he thinks he had paracentesis 5-6 days ago. He reports this was done at [facility]. Past Medical History: Attention deficit hyperactivity disorder, spinal compression fractures, liver cirrhosis from alcohol Past Surgical History: No recent surgery Social History: History of heavy alcohol use last alcohol June 03. Denies illicit drugs or tobacco. Family History: Noncontributory ROS REVIEW OF SYSTEMS: A comprehensive 10 point review of systems is otherwise negative aside from elements mentioned in the history of present illness. Exam Constitutional appears nontoxic however very jaundiced and icteric triage nursing summary reviewed, vital signs reviewed, awake/alert. Eyes icteric conjunctiva and sclera EOMI, PERRLA. HENT normal inspection, atraumatic, moist mucus membranes, no epistaxis, neck supple/ no meningismus, no raccoon eyes. Respiratory clear to auscultation bilaterally, normal breath sounds, no respiratory distress, no wheezing. Cardiovascular rate normal, regular rhythm, no murmur, no edema, distal pulses normal. Gastrointestinal significantly distended abdomen with positive fluid wave, not significantly tender Genitourinary very enlarged scrotum with fluid present. No crepitus, no evidence of external infection. Scrotum is the size of a grapefruit. Ecchymosis on the dependent portion of the scrotum Musculoskeletal no midline vertebral tenderness, full range of motion, no calf swelling, no tenderness of extremities, no meningismus, good pulses, neurovascularly intact. Skin ecchymosis on the dependent portion of the scrotum and jaundiced skin. Neurologic awake, alert and oriented x 3, AAOx3, moves all 4 extremities equally, motor intact, sensory intact, CN II-XII intact, normal cerebellar, normal vision, normal speech. Asterixis present. With extension of the extremities he has tremors. Psychiatric normal mood/affect. Heme/Lymph/Immune no lymphadenopathy. Differential Diagnosis: Includes but is not limited to in a particular order worsening liver failure, hepatorenal syndrome, electrolyte disturbance, significant ascites, scrotal ascites, low albumin state Medical Decision Making: Plan for this patient IV establishment blood draw, check ammonia level, liver enzymes, ultrasound of the scrotum. Plan will be for admission to the hospitalist service for worsening liver failure, volume overload with significant ascites and scrotal edema Re-evaluation: 0523AM: Blood work reviewed. Shows elevated LFTs, elevated bilirubin. Low albumin state. Patient be admitted to the hospitalist service for liver failure. Most likely patient will need paracentesis to remove fluid, and albumin replacement. At this time is ultrasound is pending of his scrotal ultrasound which will most likely show scrotal edema. Ultrasound of the scrotum shows no evidence of testicular torsion. Shows significant scrotal edema and fluid. No abscess. Called to me by Dr. Zamarripa. Source: Patient - Personal History Current Tetanus/Diphtheria Vaccine: Unsure Current Tetanus Diphtheria and Acellular Pertussis (TDAP): Unsure - Medical/Surgical History Hx Asthma: No Hx Chronic Respiratory Disease: No Hx Diabetes: No Hx Cardiac Disease: No Hx Renal Disease: No Hx Cirrhosis: Yes Hx Alcoholism: Yes Hx HIV/AIDS: No Hx Splenectomy or Spleen Trauma: No Other PMH: INSOMNIA, HTN,ADHD, vertebral fx, seizure, alcoholism. - Social History Smoking Status: Former smoker Constitutional: Initial Vital Signs Temperature (C) 36.9 C 07/01/17 04:30 Heart Rate 113 H 07/01/17 04:30 Respiratory Rate 16 07/01/17 04:30 Blood Pressure 132/85 H 07/01/17 04:30 O2 Sat (%) 98 07/01/17 04:30 O2 Delivery Mode Room Air Allergies/Adverse Reactions: No Known Allergies Allergy (Verified 08/28/16 22:51) Home Medications: Medication Instructions Recorded Acetaminophen [Tylenol 325mg (*)] 325 - 650 mg PO DAILY PRN 07/01/17 Atorvastatin Calcium [Lipitor 20 20 mg PO DAILY 07/01/17 mg (*)] Carboxymethylcellulose 1% [Refresh 1 drop EACHEYE DAILY PRN 07/01/17 Celluvisc (*)] Gabapentin [Neurontin 300 MG (*)] 600 mg PO TID 07/01/17 Methocarbamol [Robaxin 500 mg (*)] 500 mg PO DAILY PRN 07/01/17 Pantoprazole Sodium [Protonix 40mg 40 mg PO DAILY 07/01/17 (*)] Rifaximin [Xifaxan] 550 mg PO BID 07/01/17 Spironolactone [Aldactone 25 MG 50 mg PO DAILY 07/01/17 (*)] Medical Decision Making - Diagnostics Imaging Results: Imaging Impressions Testicular Ultrasound 07/01/17 04:50 Impression: 1. Diffuse scrotal swelling suggesting cellulitis or anasarca. 2. No focal abscess. 3. No testicular torsion or masses. 4. No evidence of epididymitis or testicular inflammatory changes. 5. Small bilateral hydroceles. Findings and recommendations discussed with Emergency Department physician, Ryley Arteaga MD at 0610 hours, 07/01/2017. Final report concurs with initial preliminary interpretation. - Data Points Laboratory Results: Laboratory Results 07/01/17 05:00 07/01/17 05:00 Medications Given: Diphenhydramine HCl (Benadryl Injection) 12.5 - 25 mg IVP Q4HRS PRN PRN Reason: Itching Stop: 12/28/17 06:46 Last Admin: 07/01/17 10:28 Dose: 12.5 mg Furosemide (Lasix Injection) 40 mg IVP Q6HRS SHANTANU Stop: 12/28/17 15:09 Last Admin: 07/01/17 17:51 Dose: 40 mg Gabapentin (Neurontin) 600 mg PO TID SHANTANU Stop: 12/28/17 15:59 Last Admin: 07/01/17 20:59 Dose: 600 mg Hydromorphone HCl (Dilaudid) 0.5 - 1 mg IVP Q4HRS PRN PRN Reason: Pain, Severe Unable to Take PO Stop: 07/11/17 06:12 Last Admin: 07/01/17 19:25 Dose: 1 mg Oxycodone HCl (Oxycodone Ir) 5 - 10 mg PO Q3HRS PRN PRN Reason: Pain, Severe Able to Take PO Stop: 07/11/17 06:12 Last Admin: 07/01/17 20:58 Dose: 10 mg Rifaximin (Xifaxan) 550 mg PO BID [facility] PRN Reason: Protocol Stop: 07/31/17 09:59 Last Admin: 07/01/17 20:39 Dose: 550 mg Spironolactone (Aldactone) 50 mg PO DAILY [facility] Stop: 12/28/17 09:59 Last Admin: 07/01/17 12:49 Dose: 50 mg Discontinued Medications Furosemide (Lasix Injection) 40 mg IVP ONCE ONE Stop: 07/01/17 06:18 Last Admin: 07/01/17 10:27 Dose: 40 mg Furosemide (Lasix Injection) 40 mg IVP ONCE ONE Stop: 07/01/17 10:16 Last Admin: 07/01/17 11:18 Dose: Not Given Furosemide (Lasix Injection) 40 mg IVP BID@0900,1500 [facility] Stop: 12/28/17 14:59 Last Admin: 07/01/17 15:47 Dose: Not Given Hydromorphone HCl (Dilaudid) 1 mg IVP EDNOW ONE Stop: 07/01/17 04:52 Last Admin: 07/01/17 04:58 Dose: 1 mg Hydromorphone HCl (Dilaudid) 1 mg IVP EDNOW ONE Stop: 07/01/17 05:46 Last Admin: 07/01/17 05:47 Dose: 1 mg Albumin Human (Albumin 25 % (Premix)) 50 mls @ 0 mls/hr IV ONCE ONE PRN Reason: As Directed Stop: 07/01/17 06:17 Last Admin: 07/01/17 09:00 Dose: Not Given Ceftriaxone Sodium 1 gm/ (Sterile Water) 10 mls @ 150 mls/hr IV DAILY [facility] PRN Reason: Protocol Stop: 07/31/17 08:59 Last Admin: 07/01/17 11:12 Dose: 10 mls Albumin Human (Albumin 25 % (Premix)) 50 mls @ 0 mls/hr IV ONCE ONE PRN Reason: As Directed Stop: 07/01/17 09:01 Last Admin: 07/01/17 10:19 Dose: 50 mls Ondansetron HCl (Zofran) 4 mg IVP EDNOW ONE Stop: 07/01/17 04:53 Last Admin: 07/01/17 04:57 Dose: 4 mg Departure - Departure Disposition: [facility] Acute Clinical Impression: Scrotal edema Liver failure Qualifiers: Liver failure chronicity: acute Hepatic coma status: without hepatic coma Qualified Code(s): K72.00 - Acute and subacute hepatic failure without coma Ascites Qualifiers: Ascites type: other type Qualified Code(s): R18.8 - Other ascites
[2017-07-01] MEDS ORDERED: HYDROmorphONE/DILAUDID 1 MG/ML INJ IVP ONE ×2 (04:51→05:45)
[2017-07-01] MEDS ORDERED: ONDANSETRON 4 MG/2 ML VIAL ONE (04:52)
[2017-07-01] MEDS ORDERED: ONDANSETRON 4 MG/2 ML VIAL IVP ONE (04:52)
[2017-07-01 05:08] LABS: PLATELET COUNT 82 10^3/uL (150-400)
[2017-07-01 05:18] LABS: INR 1.47 (0.83-1.16)
[2017-07-01] MEDS ORDERED: HYDROmorphONE/DILAUDID 1 MG/ML INJ ONE (05:44)
[2017-07-01] MEDS ORDERED: ONDANSETRON DISINTEGRATING 4 MG TAB PO PRN (06:13)
[2017-07-01] MEDS ORDERED: ACETAMINOPHEN 325 MG TAB PO PRN (06:13)
[2017-07-01] MEDS ORDERED: ONDANSETRON 4 MG/2 ML VIAL IVP PRN (06:13)
[2017-07-01] MEDS ORDERED: ALBUMIN 25% 50 ML IV ONE ×2 (06:16→09:00)
[2017-07-01] MEDS ORDERED: FUROSEMIDE 40 MG/4 ML VIAL IVP ONE ×2 (06:17→10:15)
[2017-07-01] MEDS ORDERED: LIDOCAINE 1% 300 MG/30 ML SDV ONE (07:48)
[2017-07-01] MEDS: oxyCODONE IR 5 MG TAB PO PRN ×2 (08:31→20:58)
[2017-07-01] MEDS ORDERED: cefTRIAXone 1 GM in STERILE WATER INJ 10 ML IV SCH (09:00)
--- NOTE | 2017-07-01 09:02 | GHP ---
[f rep st] HISTORY AND PHYSICAL DATE OF ADMISSION: 07/01/2017 SOURCE OF DATA: Patient provides history, appears reliable. His EMR was reviewed, case discussed with ED provider, and [facility] was reviewed for outside hospital care. CHIEF COMPLAINT: Scrotal edema. 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 The patient has had ongoing issues with lower extremity edema and ascites related to his cirrhosis. Patient reports he underwent a paracentesis on 06/23 during his hospitalization with 2.7 L taken off. On 06/26, patient underwent outpatient paracentesis where 2.2 L were removed. The patient was admitted for increasing ascites at [facility] and discharged on 06/23. He had a negative workup for SBP. He also underwent a HIDA scan that showed decreased hepatic uptake and was discharged on a prednisone taper. The patient was referred to [facility] for evaluation by the transplant team, for which patient is supposed to have an appointment at 3 p.m. today. The patient reports abstinence from alcohol since 06/03/2017. Shortly after discharge, patient had reported that he had been drinking a lot of fluids despite taking his diuretics. He was advised to fluid restrict and continue with his diuretics, which he reports he has been compliant with. The patient has continued to have increasing abdominal distention, persistent jaundice. The patient has not noted any significant increase in abdominal pain. He denies any fevers, but has been experiencing chills since his paracentesis on 06/26/2017. The patient denies any melena, hematochezia. He has had 2 loose stools. He reports compliance with rifaximin and has lactulose p.r.n. He denies any confusion, lightheadedness. He has a chronic persistent tremor. The patient denies any dysuria or hematuria. No cough, rhinorrhea, sore throat. REVIEW OF SYSTEMS: GENERAL: Patient denies any fevers, has been experiencing chills intermittently. SKIN: Jaundice. The patient denies any open rashes or sores. ENT: Patient denies any rhinorrhea or sore throat. EYES: No acute changes in vision or ocular pain. CV: No chest pain palpitations. RESPIRATORY : No shortness of breath or cough. GI: Patient without any nausea, vomiting. Abdominal distention and discomfort as noted above in HPI. : No dysuria or hematuria. Scrotal swelling as noted above. MUSCULOSKELETAL: Patient denies any joint pain, myalgias. NEURO: Persistent tremor, stable. No headaches, numbness, tingling, or focal deficits. Remainder of review of systems negative except as noted above. ALLERGIES: No known drug allergies. HOME MEDICATIONS: As per EMR, spironolactone, rifaximin, Protonix, lactulose, gabapentin, atorvastatin, multivitamin. PAST MEDICAL HISTORY: Significant for ADHD, alcoholic cirrhosis with sobriety since 06/03/2017, coagulopathy, history of rectal bleeding felt secondary to hemorrhoids not requiring intervention, hyperlipidemia, history of withdrawal seizure, jaundice. PAST SURGICAL HISTORY: Significant only for multiple paracenteses. FAMILY HISTORY: Father with diabetes, hypertension. Mother and father also with history of alcoholism. SOCIAL HISTORY: The patient previously was drinking 1 to half-pint of liquor or beer on a daily basis, has been some sober since 06/03/2017. He does smoke half pack per day. No illicit drugs reported. COR STATUS: Full. PHYSICAL EXAM: VITALS: Upon arrival to the emergency department, blood pressure 132/85, heart rate 113, respiratory rate 16, O2 sat 98% on room air with temperature 36.9. Vitals on the floor: Blood pressure 113/70, heart rate 92, respiratory rate 20, O2 sat 96% on room air with a temperature 37.0. GENERAL: No acute distress. Patient is lying quite still, cradling his abdomen. He appears chronically ill and jaundiced. HEAD: Normocephalic, atraumatic. EYES: Extraocular muscles are intact. Pupils equal, round, with decreased reactivity to light bilaterally but symmetric. Positive scleral icterus. No conjunctival injection. ENT: Mucous membranes appear moist. No nasal discharge. No oropharyngeal erythema. NECK: Supple. Trachea midline. CV: Tachycardic in the 90s with regular rhythm. No murmurs, rubs, or gallops appreciated. RESPIRATORY: Unlabored breathing, slightly diminished at the bases. No wheezes, rales, or rhonchi. ABDOMEN: Significantly distended. Positive fluid wave. Positive bowel sounds. Right lower abdomen with blanchable erythema that extends laterally across the midline. The patient's paracentesis site is also noted to have a little bit of clear fluid minimally. : Patient with significant scrotal edema, generalized tenderness. Otherwise normal external male genitalia. LOWER EXTREMITIES: 2+ to 3+ pitting edema bilaterally. Limited evaluation of pedal pulses secondary to edema. NEURO: Grossly nonfocal. Patient does have baseline tremor. Awake, alert, oriented x4. No focal deficits. Moves all extremities. PSYCH: Patient does appear a little bit anxious but pleasant, cooperative, otherwise oriented x4. Thought process, content, and questions appropriate. LABORATORY STUDIES: WBC 13.65, H and H 12.7, 35.9, MCV 106.8, platelet count is 82, neutrophil percent is 80.3, no bandemia. PT is 18.0, INR is 1.47, PTT is 40.7. Sodium is 138, potassium 3.7, chloride 106, CO2 is 20, anion gap 12, BUN is 10, creatinine is 1.0, GFR greater than 60, glucose 124, calcium 8.0, total bili is 14.0. At time of discharge on 06/23/2017, the patient's bilirubin was just over 16. Conjugated bili 11.9. ALT is 162, AST is 153, alk phos is 396, ammonia 30, total protein 6.1, albumin is 2.4, lipase is 131. UA: Specific gravity is 1.032, hazy, pH of 5.0, protein 2+, urobilinogen 4.0, leuk esterase and nitrites negative, RBC 3-5, WBC 3-5, mucus 4+, glucose 1+, otherwise negative. U-tox is positive for opiates, benzos, and THC. EtOH level is negative. Testicular ultrasound completed. Report is pending. Showing diffuse scrotal edema. No abscess or focal fluid. Small bilateral hydroceles. No mass or torsion. ASSESSMENT AND PLAN: Pleasant 37-year-old unfortunate gentleman with end-stage liver disease due to alcoholic cirrhosis, who presents with complaints of increasing edema and scrotal swelling and pain. 1. Scrotal edema. Preliminary ultrasound report is negative for any evidence of torsion or mass. Likely related to patient's third spacing with history of cirrhosis. We will try to diurese with some albumin, followed by Lasix. Fluid restriction, salt restriction diet. 2. Ascites. We will plan for patient to undergo ultrasound-guided paracenteses with evaluation of fluid for spontaneous bacterial peritonitis. The patient does have a large area of erythema surrounding the site of his previous paracentesis. He will be started empirically on Rocephin while awaiting further fluid studies. 3. Systemic inflammatory response syndrome without severe sepsis. Blood cultures, Rocephin will be obtained as well as paracentesis studies as noted above. Patient has remained afebrile. 4. Transaminitis and hyperbilirubinemia. Labs appear stable and slightly decreased from his discharge laboratory studies at [facility] earlier last week. We will continue to monitor. 5. Thrombocytopenia and coagulopathy related to cirrhosis. 6. Elevated ammonia. Patient's mentation is appropriate at this time. Continue lactulose and rifaximin. 7. Anemia related to cirrhosis and chronic disease. Continue to monitor. No evidence of active bleeding. 8. Hyperglycemia, nonfasting lab. We will continue to monitor. 9. Hypoalbuminemia secondary to cirrhosis. 10. Fluid, electrolyte, and nutrition. Saline lock IV, diuresis as above, monitor electrolytes, replace if needed. The patient will be n.p.o. for paracentesis and, upon return, regular diet with low-sodium diet and fluid restriction 1500 cc per day. 11. Prophylaxis: Sequential compression devices if tolerated with edema. Holding anticoagulation with coagulopathy and thrombocytopenia. CODE STATUS: At this time is full. DISPOSITION: Patient has been admitted initially to observation on the medical floor pending further evaluation of fluid studies and labs. /[id number]/MODL MTDD
[2017-07-01] MEDS ORDERED: METHOCARBAMOL 500 MG TAB PO PRN (09:57)
[2017-07-01] MEDS ORDERED: CARBOXYMETHYLCELLULOSE 1% 0.4 ML DROPERETTE EACHEYE PRN (09:57)
[2017-07-01] MEDS: HYDROmorphONE/DILAUDID 1 MG/ML INJ IVP PRN ×3 (10:27→19:25)
[2017-07-01] MEDS: SPIRONOLACTONE 25 MG TAB PO SCH (12:49)
[2017-07-01] MEDS: RIFAXIMIN 550 MG TAB PO SCH ×2 (12:49→20:39)
[2017-07-01] MEDS ORDERED: FUROSEMIDE 40 MG/4 ML VIAL IVP SCH (15:00)
[2017-07-01] MEDS: GABAPENTIN 300 MG CAP PO SCH ×2 (15:59→20:59)
[2017-07-01] MEDS: FUROSEMIDE 40 MG/4 ML VIAL IVP SCH ×2 (15:59→17:51)
[2017-07-02] MEDS: FUROSEMIDE 40 MG/4 ML VIAL IVP SCH ×5 (00:02→23:00)
[2017-07-02] MEDS: HYDROmorphONE/DILAUDID 1 MG/ML INJ IVP PRN ×3 (00:06→19:39)
[2017-07-02 05:59] LABS: PLATELET COUNT 80 10^3/uL (150-400)
--- NOTE | 2017-07-02 06:01 | CPEKG ---
Heart Rate: 103 RR Interval: 583 P-R Interval: 188 QRSD Interval: 98 QT Interval: 312 QTC Interval: 409 P Morrill: 71 QRS Morrill: -3 T Wave Morrill: -5 EKG Severity - BORDERLINE ECG - EKG Impression: SINUS TACHYCARDIA EKG Impression: BORDERLINE T ABNORMALITIES, INFERIOR LEADS Electronically Signed By: Jordi Riley 03-Jul-2017 13:02:55
[2017-07-02 06:12] LABS: INR 1.45 (0.83-1.16); PROTIME(PATIENT) 17.8 SEC (12.0-15.0)
[2017-07-02] MEDS ORDERED: POTASSIUM CL 20 MEQ TAB PO ONE ×2 (06:36→16:00)
[2017-07-02] MEDS ORDERED: POTASSIUM Cl (KCl) 100 ML IV SCH (06:45)
[2017-07-02] MEDS ORDERED: POTASSIUM Cl (KCl) 10 MEQ in D5W 100 ML IV SCH (07:00)
[2017-07-02] MEDS: POTASSIUM Cl (KCl) 10 MEQ in NS 100 ML IV SCH ×2 (08:05→09:37)
[2017-07-02] MEDS: GABAPENTIN 300 MG CAP PO SCH ×3 (08:19→22:08)
[2017-07-02] MEDS: RIFAXIMIN 550 MG TAB PO SCH ×2 (08:19→19:38)
[2017-07-02] MEDS: SPIRONOLACTONE 25 MG TAB PO SCH (08:20)
[2017-07-02] MEDS: PANTOPRAZOLE SODIUM 40 MG TAB PO SCH (08:22)
[2017-07-02] MEDS: oxyCODONE IR 5 MG TAB PO PRN (08:37)
[2017-07-02] MEDS ORDERED: PROTOCOL POTASSIUM 1 DOSE MISC PRN (10:48)
[2017-07-02] MEDS ORDERED: SPIRONOLACTONE 25 MG TAB PO SCH (10:50)
[2017-07-02] MEDS ORDERED: ONDANSETRON DISINTEGRATING 4 MG TAB PO PRN (11:00)
[2017-07-02] MEDS ORDERED: ONDANSETRON 4 MG/2 ML VIAL IVP PRN (11:00)
[2017-07-02] MEDS ORDERED: SPIRONOLACTONE 50 MG TAB PO ONE (11:15)
--- NOTE | 2017-07-02 13:05 | HOSPPROG ---
Hospitalist Progress Note Assessment/Plan: 37 yo M w alcoholic hepatitis and cirrhosis here w volume overload volume overload: anasarca 2/2 portal htn s/p paracentesis w 3\.7 L removed 3 kg down continue aggressive diuresis alcoholic hepatitis: continue abstinence discrminant function just less than 32 so hold steroids for now repeat labs in AM, start steroids if rising hypokalemia: replete, electrolyte protocol and telemetry ekg ok jaundice: as above dispo: inpt proph: ambulatory coagulopathy relative contraindication to lmwh Subjective: hypokalemic ekg w no changes (interp by me). tele: no events ( interp by me) Objective: Vital Signs Temp Pulse Resp BP Pulse Ox 37.1 C 110 H 14 116/82 H 95 07/02/17 08:00 07/02/17 08:00 07/02/17 08:00 07/02/17 08:00 07/02/17 08:00 Microbiology 07/01/17 09:40 Gram Stain - Final Peritoneal Fluid - Aspirate Laboratory Results 07/02/17 05:20 07/02/17 05:20 07/01/17 07/02/17 07/03/17 05:59 05:59 05:59 Intake Total 1240 Output Total 570 700 Balance 670 -700 PT 17.8 SEC (12.0-15.0) H 07/02/17 05:20 INR 1.45 (0.83-1.16) H 07/02/17 05:20 - Physical Exam Constitutional: no apparent distress, appears nourished Eyes: PERRL, icteric sclera Ears, Nose, Mouth, Throat: moist mucous membranes, hearing normal Cardiovascular: regular rate and rhythym, tachycardia Respiratory: no respiratory distress, no rales or rhonchi Gastrointestinal: normoactive bowel sounds, soft, non-tender abdomen Genitourinary: no bladder fullness, No cummings in urethra Skin: warm, No normal color Musculoskeletal: full muscle strength Neurologic: other (tremor) Psychiatric: interacting appropriately ICD10 Worksheet Patient Problems: Problems Problem Status Onset Ascites Acute Liver failure Acute Scrotal edema Acute Acute renal failure Acute Back pain Acute Compression fracture Acute Dehydration Acute NSAID induced gastritis Acute Nausea & vomiting Acute Nausea & vomiting Acute Tachycardia Acute Chronic headaches Chronic
--- NOTE | 2017-07-02 15:09 | ASMTCASEMG ---
Living Arrangements What is your living Answers: Alone arrangement? Who do you live with? Type Of Residence What kind of residence do Answers: House you live in? Discharge Plan Comments Coordination Status Comments Notes: Pt is a 37 y/o man admitted for ESRD and scrotal edema. Pt has a hx of ETOH but has been sober since 06/03/17. Pt will most likely d/c independent when medically stable. No therapies ordered at this time. CM available for changes. Plan: Independent Date Signed: 07/02/2017 03:08 PM Electronically Signed By:NATHAN Soria
[2017-07-02] MEDS ORDERED: MAGNESIUM SULF 2 GM/WATER 50 ML IV ONE (16:00)
--- NOTE | 2017-07-02 18:29 | PDMN ---
Medical Necessity Medical necessity: Pt meets INPT criteria per MD as of 07/02/17; est. LOS >2 MN for eval/tx of volume overload, anasarca 2/2 portal htn, alcoholic hepatitis, hypokalemia per MD.
[2017-07-02] MEDS ORDERED: POTASSIUM CL 10 MEQ TAB PO ONE (22:21)
[2017-07-03] MEDS: FUROSEMIDE 40 MG/4 ML VIAL IVP SCH ×4 (06:16→23:09)
[2017-07-03 06:34] LABS: INR 1.49 (0.83-1.16); PROTIME(PATIENT) 18.2 SEC (12.0-15.0)
[2017-07-03] MEDS ORDERED: POTASSIUM CL 10 MEQ TAB PO ONE ×2 (08:37→21:00)
[2017-07-03] MEDS: PANTOPRAZOLE SODIUM 40 MG TAB PO SCH (09:55)
[2017-07-03] MEDS: SPIRONOLACTONE 25 MG TAB PO SCH (09:55)
[2017-07-03] MEDS: GABAPENTIN 300 MG CAP PO SCH ×3 (09:55→23:08)
[2017-07-03] MEDS: RIFAXIMIN 550 MG TAB PO SCH ×2 (09:55→20:34)
[2017-07-03] MEDS: oxyCODONE IR 5 MG TAB PO PRN ×2 (12:13→20:34)
[2017-07-03] MEDS: HYDROmorphONE/DILAUDID 1 MG/ML INJ IVP PRN ×2 (13:21→17:26)
--- NOTE | 2017-07-03 17:25 | HOSPPROG ---
Hospitalist Progress Note Assessment/Plan: 37 yo M w alcoholic hepatitis and cirrhosis here w volume overload volume overload: anasarca 2/2 portal htn s/p paracentesis w 3\.7 L removed 3 kg down continue aggressive diuresis alcoholic hepatitis: continue abstinence discrminant function just less than 32 so hold steroids for now repeat labs in AM, start steroids if rising hypokalemia: replete, electrolyte protocol and telemetry ekg ok jaundice: as above dispo: inpt proph: ambulatory coagulopathy relative contraindication to lmwh Subjective: diuresing Objective: Vital Signs Temp Pulse Resp BP Pulse Ox 36.4 C 105 H 18 113/70 96 07/03/17 15:17 07/03/17 15:17 07/03/17 15:17 07/03/17 15:17 07/03/17 15:17 Laboratory Results 07/03/17 04:47 07/02/17 07/03/17 07/04/17 05:59 05:59 05:59 Intake Total 937 Output Total 775 Balance 162 PT 18.2 SEC (12.0-15.0) H 07/03/17 04:47 INR 1.49 (0.83-1.16) H 07/03/17 04:47 - Physical Exam Constitutional: no apparent distress Eyes: icteric sclera Ears, Nose, Mouth, Throat: moist mucous membranes, hearing normal Cardiovascular: regular rate and rhythym, no murmur, rub, or gallop Respiratory: no respiratory distress, clear to auscultation Gastrointestinal: normoactive bowel sounds, other (ruq tenderness) Genitourinary: no bladder fullness Skin: warm Musculoskeletal: full muscle strength Neurologic: AAOx3 ICD10 Worksheet Patient Problems: Problems Problem Status Onset Ascites Acute Liver failure Acute Scrotal edema Acute Acute renal failure Acute Back pain Acute Compression fracture Acute Dehydration Acute NSAID induced gastritis Acute Nausea & vomiting Acute Nausea & vomiting Acute Tachycardia Acute Chronic headaches Chronic
[2017-07-04] MEDS: oxyCODONE IR 5 MG TAB PO PRN ×4 (04:58→15:59)
[2017-07-04] MEDS: FUROSEMIDE 40 MG/4 ML VIAL IVP SCH ×3 (04:58→17:29)
[2017-07-04] MEDS ORDERED: POTASSIUM CL 20 MEQ TAB PO ONE (05:44)
[2017-07-04] MEDS ORDERED: POTASSIUM CL 10 MEQ TAB PO ONE (08:00)
[2017-07-04 08:33] VITALS: RESP 16
[2017-07-04] MEDS: GABAPENTIN 300 MG CAP PO SCH ×2 (08:44→15:59)
[2017-07-04] MEDS: SPIRONOLACTONE 25 MG TAB PO SCH (08:44)
[2017-07-04] MEDS: HYDROmorphONE/DILAUDID 1 MG/ML INJ IVP PRN (08:45)
[2017-07-04] MEDS: RIFAXIMIN 550 MG TAB PO SCH (08:52)
[2017-07-04] MEDS: PANTOPRAZOLE SODIUM 40 MG TAB PO SCH (08:53)
[2017-07-04] MEDS ORDERED: POTASSIUM CL 20 MEQ/15 ML UDCUP PO ONE (15:21)
--- NOTE | 2017-07-04 15:25 | HOSPPROG ---
Hospitalist Progress Note Assessment/Plan: 37 yo M w alcoholic hepatitis and cirrhosis here w volume overload volume overload: anasarca 2/2 portal htn s/p paracentesis w 3\.7 L removed 3 kg down continue aggressive diuresis alcoholic hepatitis: continue abstinence discrminant function just less than 32 so hold steroids for now repeat labs in AM, start steroids if rising hypokalemia: replete, electrolyte protocol and telemetry ekg ok should normalize w decrease of lasix and po dosing jaundice: as above dispo: inpt proph: ambulatory coagulopathy relative contraindication to lmwh ome today pending ruq u/s w no cholecystitis > 30 minutes on dc Subjective: 5 kg diuresis. wishes for dc today Objective: Vital Signs Temp Pulse Resp BP Pulse Ox 36.8 C 117 H 16 111/75 94 07/04/17 08:30 07/04/17 14:24 07/04/17 08:30 07/04/17 08:30 07/04/17 08:30 Laboratory Results 07/04/17 04:26 07/03/17 07/04/17 07/05/17 05:59 05:59 05:59 Intake Total 937 886 300 Output Total 775 350 200 Balance 162 536 100 PT 18.2 SEC (12.0-15.0) H 07/03/17 04:47 INR 1.49 (0.83-1.16) H 07/03/17 04:47 - Physical Exam Constitutional: no apparent distress, appears nourished Eyes: PERRL, icteric sclera Ears, Nose, Mouth, Throat: moist mucous membranes, hearing normal Cardiovascular: regular rate and rhythym, tachycardia Respiratory: no respiratory distress, no rales or rhonchi Gastrointestinal: normoactive bowel sounds, soft, non-tender abdomen, ascites Genitourinary: no bladder fullness, No cummings in urethra Skin: warm, normal color Musculoskeletal: full muscle strength, no muscle tenderness Neurologic: AAOx3 ICD10 Worksheet Patient Problems: Problems Problem Status Onset Ascites Acute Liver failure Acute Scrotal edema Acute Acute renal failure Acute Back pain Acute Compression fracture Acute Dehydration Acute NSAID induced gastritis Acute Nausea & vomiting Acute Nausea & vomiting Acute Tachycardia Acute Chronic headaches Chronic
--- NOTE | 2017-07-04 15:55 | ASMTCMCOM ---
CM Note CM Note Notes: Pt not ready for DC yet but he continues to have no DC needs. Date Signed: 07/04/2017 03:55 PM Electronically Signed By:Melvi Hanson LCSW
[2017-07-04 16:41] VITALS: BP 120/75; PULSE 110; TEMP 98.3; O2SAT 95
--- NOTE | 2017-07-05 01:43 | GDS ---
[f rep st] DISCHARGE SUMMARY DISCHARGE DIAGNOSES: 1. Anasarca and ascites. 2. Acute alcoholic hepatitis. 3. Cirrhosis. 4. Alcoholism. 5. Hyperkalemia. 6. Tachycardia. HOSPITAL COURSE: Please see admission history and physical by Dr. Ivette Saavedra. The patient present ed with volume overload, edematous scrotum and ascites. He had a 3.7 L paracentesis. Studies were n egative for spontaneous bacterial peritonitis. He had elevated bilirubin, his discriminant function hovered around 30. He was not given steroids. He did have a predominantly conjugated bilirubin with an elevated alkaline phosphatase. A right upper quadrant ultrasound was ordered, it is pending at t his time. If it is negative, he is discharged today on Lasix 40 twice daily and spironolactone 100 d aily. Previously, he was taking just spironolactone 50 daily. He has an appointment to follow up [facility]. He has been sober for about a month. /[id number]/MODL
== END 2017-07-04 18:51 | disposition home or self-care (01) | DRG 433 ==
LOC: INTOOBSV 05:34 → F1N 06:30 → OBSVTOIN 07-02 16:57
PROVIDERS: ADMIT Family Medicine; ATTEND Internal Medicine
PROC: 0W9G3ZX Drainage of Peritoneal Cavity, Percutaneous Approach, Diagnostic (ICD-10-PCS; principal; 2017-07-01)
PROC: BW40ZZZ Ultrasonography of Abdomen (ICD-10-PCS; principal; 2017-07-01)
DX: K70.31 Alcoholic cirrhosis of liver with ascites (principal); N50.89 Other specified disorders of the male genital organs; K70.11 Alcoholic hepatitis with ascites; K76.6 Portal hypertension; E87.5 Hyperkalemia; F10.20 Alcohol dependence, uncomplicated; D63.8 Anemia in other chronic diseases classified elsewhere; R73.9 Hyperglycemia, unspecified; R00.0 Tachycardia, unspecified; R25.1 Tremor, unspecified; E78.5 Hyperlipidemia, unspecified; F90.1 Attention-deficit hyperactivity disorder, predominantly hyperactive type; F17.210 Nicotine dependence, cigarettes, uncomplicated; Z81.1 Family history of alcohol abuse and dependence; R74.0 Nonspecific elevation of levels of transaminase and lactic acid dehydrogenase [LDH]; E80.6 Other disorders of bilirubin metabolism
CPT/HCPCS: 80305; 96374; G0378; G0480; J0696; J1170; J1200; J1940; J2405; P9047

== ENCOUNTER 2017-08-19 17:59 | Emergency (ER) | payer MEDICAID ==
[2017-08-19 18:09] VITALS: TEMP 98.4
--- NOTE | 2017-08-19 18:30 | EDPHY ---
H & P Stated Complaint: regular labs obtained at [facility] showed hyperglycemia/called and told to go Time Seen by Provider: 08/19/17 18:10 HPI/ROS: CHIEF COMPLAINT: Hyperglycemia HISTORY OF PRESENT ILLNESS: The patient is referred to the ED for newly diagnosed hyperglycemia. The patient has a history of alcoholic liver disease but no history of diabetes. The patient reports he has been sober since June of this year. He does have a history of hypertension. The patient reports he has had some chronic intermittent abdominal pain since June which he continues to have today. The patient denies any fever or dysuria. REVIEW OF SYSTEMS: A comprehensive 10 point review of systems is otherwise negative aside from elements mentioned in the history of present illness. Source: Patient - Personal History Current Tetanus/Diphtheria Vaccine: No - Medical/Surgical History Hx Asthma: No Hx Chronic Respiratory Disease: No Hx Diabetes: No Hx Cardiac Disease: No Hx Renal Disease: No Hx Cirrhosis: Yes Hx Alcoholism: Yes Hx HIV/AIDS: No Hx Splenectomy or Spleen Trauma: No Other PMH: INSOMNIA, HTN,ADHD, vertebral fx, seizure, alcoholism. - Social History Smoking Status: Former smoker - Physical Exam Exam: General Appearance: Alert, no distress Eyes: Pupils equal and round no pallor or injection ENT, Mouth: Mucous membranes moist Respiratory: There are no retractions, lungs are clear to auscultation Cardiovascular: Regular rate and rhythm Gastrointestinal: Tenderness to palpation right lower quadrant, mild abdominal distension Neurological: 5/5 strength all 4 extremities Skin: Warm and dry, no rashes Musculoskeletal: Neck is supple nontender Extremities: symmetrical, full range of motion Psychiatric: Patient is oriented X 3, there is no agitation Constitutional: Initial Vital Signs Temperature (C) 36.9 C 08/19/17 18:06 Heart Rate 128 H 08/19/17 18:06 Respiratory Rate 20 08/19/17 18:06 Blood Pressure 119/81 H 08/19/17 18:06 O2 Sat (%) 98 08/19/17 18:06 O2 Delivery Mode Room Air Allergies/Adverse Reactions: No Known Allergies Allergy (Verified 08/19/17 18:04) Home Medications: Medication Instructions Recorded Acetaminophen [Tylenol 325mg (*)] 325 - 650 mg PO DAILY PRN 07/01/17 Carboxymethylcellulose 1% [Refresh 1 drop EACHEYE DAILY PRN 07/01/17 Celluvisc (*)] Gabapentin [Neurontin 300 MG (*)] 600 mg PO TID 07/01/17 Pantoprazole Sodium [Protonix 40mg 40 mg PO DAILY 07/01/17 (*)] Rifaximin [Xifaxan] 550 mg PO BID 07/01/17 Amitriptyline HCl 08/19/17 metFORMIN HCL [Metformin HCl] 500 mg PO BID #60 tablet 08/19/17 Medical Decision Making ED Course/Re-evaluation: The patient presents to the ED with hyperglycemia. This is a new diagnosis for the patient. He reportedly has been drinking a large amount of soda and having a lot of sugar since stopping his alcohol consumption. The patient has no evidence of diabetic ketoacidosis. The patient did receive some IV insulin in the emergency department. The patient was offered outpatient versus inpatient management of his hyperglycemia and prefers to go home. The patient will be started on metformin 500 mg twice daily. He will follow up with his primary care provider Sana Weiner at [facility] this week. The patient's blood sugar was rechecked at 7:50 pm and is now 360. The patient is comfortable being discharged home and all and up with [facility] this week. The patient has been advised to return to the emergency department for any markedly worsening abdominal pain, fever, vomiting or other concerns. Differential Diagnosis: Differential diagnosis considered includes new onset diabetes, diabetic ketoacidosis, pancreatitis, dehydration, renal failure, metabolic abnormality - Data Points Laboratory Results: Laboratory Results 08/19/17 18:45 08/19/17 18:14 08/19/17 08/19/17 08/19/17 18:45 18:19 18:14 WBC 6.13 10^3/uL 10^3/uL (3.80-9.50) RBC 3.71 10^6/uL L 10^6/uL (4.40-6.38) Hgb 12.3 g/dL L g/dL (13.7-17.5) POC Hgb 13.3 gm/dL L gm/dL (13.7-17.5) Hct 34.7 % L % (40.0-51.0) POC Hct 39 % L % (40-51) MCV 93.5 fL fL (81.5-99.8) MCH 33.2 pg pg (27.9-34.1) MCHC 35.4 g/dL g/dL (32.4-36.7) RDW 13.0 % % (11.5-15.2) Plt Count 161 10^3/uL 10^3/uL (150-400) MPV 10.7 fL fL (8.7-11.7) Neut % (Auto) 69.2 % % (39.3-74.2) Lymph % (Auto) 23.2 % % (15.0-45.0) [place] % (Auto) 5.4 % % (4.5-13.0) Eos % (Auto) 1.3 % % (0.6-7.6) Baso % (Auto) 0.7 % % (0.3-1.7) Nucleat RBC Rel Count 0.0 % % (0.0-0.2) Absolute Neuts (auto) 4.25 10^3/uL 10^3/uL (1.70-6.50) Absolute Lymphs (auto) 1.42 10^3/uL 10^3/uL (1.00-3.00) Absolute Monos (auto) 0.33 10^3/uL 10^3/uL (0.30-0.80) Absolute Eos (auto) 0.08 10^3/uL 10^3/uL (0.03-0.40) Absolute Basos (auto) 0.04 10^3/uL 10^3/uL (0.02-0.10) Absolute Nucleated RBC 0.00 10^3/uL 10^3/uL (0-0.01) Immature Gran % 0.2 % % (0.0-1.1) Immature Gran # 0.01 10^3/uL 10^3/uL (0.00-0.10) VBG pH 7.32 (7.31-7.42) POC Sodium 134 mEq/L L mEq/L (135-145) Sodium POC Potassium 3.3 mEq/L mEq/L (3.3-5.0) Potassium POC Chloride 97 mEq/L mEq/L (97-110) Chloride Carbon Dioxide Anion Gap POC BUN 13 mg/dL mg/dL (7-23) BUN Creatinine POC Creatinine 0.7 mg/dL mg/dL (0.7-1.3) Estimated GFR Glucose POC Glucose 505 mg/dL H* mg/dL (70-100) Calcium Total Bilirubin Conjugated Bilirubin Unconjugated Bilirubin AST ALT Alkaline Phosphatase Total Protein Albumin Lipase Beta-Hydroxybutyrate 08/19/17 18:14 WBC RBC Hgb POC Hgb Hct POC Hct MCV MCH MCHC RDW Plt Count MPV Neut % (Auto) Lymph % (Auto) [place] % (Auto) Eos % (Auto) Baso % (Auto) Nucleat RBC Rel Count Absolute Neuts (auto) Absolute Lymphs (auto) Absolute Monos (auto) Absolute Eos (auto) Absolute Basos (auto) Absolute Nucleated RBC Immature Gran % Immature Gran # VBG pH POC Sodium Sodium 133 mEq/L L mEq/L (135-145) POC Potassium Potassium 3.4 mEq/L L mEq/L (3.5-5.2) POC Chloride Chloride 97 mEq/L mEq/L (97-110) Carbon Dioxide 22 mEq/l mEq/l (22-31) Anion Gap 14 mEq/L mEq/L (8-16) POC BUN BUN 14 mg/dL mg/dL (7-23) Creatinine 0.6 mg/dL L mg/dL (0.7-1.3) POC Creatinine Estimated GFR > 60 Glucose 532 mg/dL H* mg/dL (70-100) POC Glucose Calcium 10.4 mg/dL mg/dL (8.5-10.4) Total Bilirubin 2.5 mg/dL H mg/dL (0.1-1.4) Conjugated Bilirubin 1.6 mg/dL H mg/dL (0.0-0.5) Unconjugated Bilirubin 0.9 mg/dL mg/dL (0.0-1.1) AST 67 IU/L H IU/L (17-59) ALT 63 IU/L IU/L (21-72) Alkaline Phosphatase 133 IU/L H IU/L (38-126) Total Protein 8.2 g/dL g/dL (6.3-8.2) Albumin 4.0 g/dL g/dL (3.5-5.0) Lipase 191 IU/L IU/L (23-300) Beta-Hydroxybutyrate 0.11 mmol/L mmol/L (0.02-0.27) Medications Given: Discontinued Medications Insulin Human Regular (Humulin R) 8 unit IV EDNOW ONE Stop: 03/20/18 19:01 Last Admin: 08/19/17 19:11 Dose: 8 unit Point of Care Test Results: 08/19/17 18:19 POC Sodium 134 L POC Potassium 3.3 POC Chloride 97 POC BUN 13 POC Creatinine 0.7 POC Glucose 505 H* Departure - Departure Disposition: Home, Routine, Self-Care Clinical Impression: Hyperglycemia due to type 2 diabetes mellitus Condition: Good Instructions: Diabetic Hyperglycemia (ED) Additional Instructions: 1. Decrease your intake of soda and sugars. 2. Please begin metformin medication as prescribed. 3. Return to the ED for worsening abdominal pain, vomiting, weakness or other concerns. 4. Please contact your primary care provider at [facility] to schedule a follow-up appointment this week for a recheck of your blood sugar. Referrals: Sana Weiner PA [Primary Care Provider] - As per Instructions Prescriptions: metFORMIN HCL [Metformin HCl] 500 mg PO BID #60 tablet
[2017-08-19 18:50] LABS: PLATELET COUNT 161 10^3/uL (150-400)
[2017-08-19] MEDS ORDERED: INSULIN REGULAR HUMAN 100 UNIT/ML UNIT IV ONE (19:00)
[2017-08-19 20:06] VITALS: BP 127/85; PULSE 108; RESP 18; O2SAT 96
== END 2017-08-19 20:07 | disposition home or self-care (01) ==
DX: E11.65 Type 2 diabetes mellitus with hyperglycemia (principal); I10 Essential (primary) hypertension; Z87.891 Personal history of nicotine dependence; Z79.84 Long term (current) use of oral hypoglycemic drugs
CPT/HCPCS: 82947-QW; 96374; J1815